=== PATIENT | male | born 1995 | race Caucasian/White ===

== ENCOUNTER 2018-04-24 12:01 | Emergency (ER) | payer OTHER ==
[2018-04-24] MEDS: NS 1,000 ML IV (15:30)
[2018-04-24 16:00] LABS: BASO % 0.2 % (0.0-1.0); HEMATOCRIT 43.9 % (42.0-52.0); HEMOGLOBIN 15.3 g/dl (13.5-17.5); IMMATURE GRANULOCYTE % 0.3 % (0-3.0); LYMPH % 8.9 % (24.0-44.0); MEAN CORPUSCULAR HEMOGLOBIN 29.8 pg (27.0-33.0); MEAN CORPUSCULAR HGB CONC 34.9 g/dl (32.0-36.5); MEAN CORPUSCULAR VOLUME 85.6 fl (80.0-96.0); MONO # 0.1 10^3/uL (0.0-0.8); NEUTROPHILS # 10.3 10^3/uL (1.8-7.7); NEUTROPHILS % 89.6 % (36.0-66.0); PLATELET COUNT, AUTOMATED 212 10^3/uL (150-450); RED BLOOD COUNT 5.13 10^6/uL (4.30-6.10); RED CELL DISTRIBUTION WIDTH 12.8 % (11.5-14.5); WHITE BLOOD COUNT 11.5 10^3/uL (4.0-10.0)
[2018-04-24 16:04] LABS: AMORPHOUS SEDIMENT RFX SMALL (NEGATIVE); KETONE, URINE AUTO RFX NEGATIVE (NEGATIVE); LEUKOCYTE ESTERASE UR AUTO RFX NEGATIVE (NEGATIVE); NITRITE, URINE AUTO RFX NEGATIVE (NEGATIVE); RBC, URINE AUTO RFX 1 /HPF (0-3); SPECIFIC GRAVITY UR AUTO RFX 1.025 (1.002-1.035); SQUAM EPITHELIAL CELL UR AURFX 0 /HPF (0-6); WBC, URINE AUTO RFX 1 /HPF (0-3)
[2018-04-24 16:38] LABS: ALBUMIN 4.7 GM/DL (3.2-5.2); ALBUMIN/GLOBULIN RATIO 1.47 (1.00-1.93); ALKALINE PHOSPHATASE 90 U/L (45-117); ALT/SGPT 18 U/L (12-78); ANION GAP 12 MEQ/L (8-16); AST/SGOT 20 U/L (7-37); BILIRUBIN,DIRECT 0.3 MG/DL (0.0-0.2); BILIRUBIN,TOTAL 1.4 MG/DL (0.2-1.0); BLOOD UREA NITROGEN 22 MG/DL (7-18); CALCIUM LEVEL 9.2 MG/DL (8.5-10.1); CARBON DIOXIDE LEVEL 24 MEQ/L (21-32); CHLORIDE LEVEL 106 MEQ/L (98-107); CREATININE FOR GFR 1.04 MG/DL (0.70-1.30); FREE T4 1.15 NG/DL (0.78-1.33); GLUCOSE, FASTING 115 MG/DL (70-100); MAGNESIUM LEVEL 2.2 MG/DL (1.8-2.4); POTASSIUM SERUM 4.1 MEQ/L (3.5-5.1); SODIUM LEVEL 142 MEQ/L (136-145); THYROID STIMULATING HORMONE 0.213 uIU/ML (0.463-3.98); TOTAL PROTEIN 7.9 GM/DL (6.4-8.2)
== END 2018-04-24 18:00 | disposition home or self-care (01) ==
LOC: M ED 12:01
DX: E86.0 Dehydration (principal); E03.9 Hypothyroidism, unspecified; R55 Syncope and collapse; J45.909 Unspecified asthma, uncomplicated; F17.220 Nicotine dependence, chewing tobacco, uncomplicated; Z79.52 Long term (current) use of systemic steroids
CPT/HCPCS: 71046

== ENCOUNTER 2018-06-13 16:55 | Emergency (ER) | payer OTHER ==
[2018-06-13 18:19] LABS: BASO # 0.1 10^3/uL (0.0-0.2); BASO % 1.1 % (0.0-1.0); EOS # 0.3 10^3/uL (0.0-0.50); EOS % 4.7 % (0.0-3.0); HEMATOCRIT 41.7 % (42.0-52.0); HEMOGLOBIN 14.4 g/dl (13.5-17.5); IMMATURE GRANULOCYTE % 0.3 % (0-3.0); LYMPH # 2.5 10^3/uL (1.5-6.5); LYMPH % 37.4 % (24.0-44.0); MEAN CORPUSCULAR HEMOGLOBIN 29.9 pg (27.0-33.0); MEAN CORPUSCULAR HGB CONC 34.5 g/dl (32.0-36.5); MEAN CORPUSCULAR VOLUME 86.7 fl (80.0-96.0); MONO # 0.5 10^3/uL (0.0-0.8); MONO % 7.5 % (0.0-5.0); NEUTROPHILS # 3.3 10^3/uL (1.8-7.7); PLATELET COUNT, AUTOMATED 224 10^3/uL (150-450); RED BLOOD COUNT 4.81 10^6/uL (4.30-6.10); RED CELL DISTRIBUTION WIDTH 12.8 % (11.5-14.5); WHITE BLOOD COUNT 6.7 10^3/uL (4.0-10.0)
[2018-06-13 18:36] LABS: PARTIAL THROMBOPLASTIN TIME 27.3 SECONDS (25.4-37.6); PROTHROMBIN TIME 13.3 SECONDS (12.1-14.4)
[2018-06-13 18:47] LABS: ANION GAP 9 MEQ/L (8-16); BLOOD UREA NITROGEN 15 MG/DL (7-18); CALCIUM LEVEL 8.7 MG/DL (8.5-10.1); CARBON DIOXIDE LEVEL 27 MEQ/L (21-32); CHLORIDE LEVEL 109 MEQ/L (98-107); CK-MB VALUE MASS 1.2 NG/ML (<3.6); CPK CREATINE PHOSPHOKINASE 334 U/L (39-308); CREATININE FOR GFR 0.96 MG/DL (0.70-1.30); GLUCOSE, FASTING 84 MG/DL (70-100); MB/CK RELATIVE INDEX 0.35 (< OR =4); POTASSIUM SERUM 3.5 MEQ/L (3.5-5.1); SODIUM LEVEL 145 MEQ/L (136-145); TROPONIN I < 0.02 NG/ML (< 0.10)
== END 2018-06-13 20:54 | disposition home or self-care (01) ==
LOC: M ED 16:55
DX: R53.1 Weakness (principal); R20.9 Unspecified disturbances of skin sensation; R00.1 Bradycardia, unspecified; J45.909 Unspecified asthma, uncomplicated
CPT/HCPCS: 70551

== ENCOUNTER → 2018-07-16 | Outpatient (CLI) | payer OTHER | LOC: M RAD 15:50 | DX: J32.4 Chronic pansinusitis (principal) | CPT/HCPCS: 70486 ==

== ENCOUNTER 2018-10-03 08:11 | Day surgery (SDC) | payer OTHER ==
[2018-10-03] MEDS ORDERED: ROCURONIUM BROMIDE 50 MG/5 ML VIAL As Ordered (08:50)
[2018-10-03] MEDS ORDERED: GLYCOPYRROLATE INJ 0.2 MG/ML 2 ML VIAL As Ordered (08:50)
[2018-10-03] MEDS ORDERED: NEOSTIGMINE 10 MG/10 ML VIAL (J2710) As Ordered (08:50)
[2018-10-03] MEDS ORDERED: LIDOCAINE 2% INJ 100 MG/5 ML SDV (FOR ANES.) As Ordered (08:50)
[2018-10-03] MEDS ORDERED: PROPOFOL 200 MG/20 ML VIAL As Ordered (08:50)
[2018-10-03] MEDS ORDERED: ONDANSETRON 4MG/2ML VIAL (J2405) As Ordered (08:50)
[2018-10-03] MEDS ORDERED: dexameTHASONE 4 MG/ML 1ML VIAL (J1100) As Ordered (08:50)
[2018-10-03] MEDS ORDERED: MIDAZOLAM INJ 2 MG/2 ML VIAL (J2250) As Ordered (08:51)
[2018-10-03] MEDS ORDERED: fentaNYL 100 MCG/2 ML INJECTION (J3010) As Ordered (08:51)
[2018-10-03] MEDS: SODIUM CHLORIDE 0.9% NASAL GEL 15GM (AYR) As Ordered (10:01)
[2018-10-03] MEDS: OXYMETAZOLINE NASAL SPRAY (AFRIN) As Ordered (10:41)
[2018-10-03] MEDS: METHYLENE BLUE 0.5% (5MG/ML) 10 ML AMP (PROVAYBLUE)(Q9968 PER 1MG) As Ordered (10:42)
[2018-10-03] MEDS: LIDOCAINE W/EPINEPHRINE 1% 20ML VIAL As Ordered (10:42)
[2018-10-03] MEDS ORDERED: diphenhydrAMINE INJ 50MG/ML VIAL (J1200) As Ordered (11:13)
[2018-10-03] MEDS: fentaNYL 100 MCG/2 ML INJECTION (J3010) IV ×4 (11:15→11:30)
[2018-10-03] MEDS: PERCOCET 5MG/325MG TAB PO ×2 (11:15→11:54)
[2018-10-03] MEDS ORDERED: METOCLOPRAMIDE INJ 10MG/2ML VIAL (J2765) IV (11:15)
[2018-10-03] MEDS ORDERED: MEPERIDINE INJ 25 MG/ML VIAL (J2175) IV (11:15)
[2018-10-03] MEDS ORDERED: LR 1,000 ML IV (11:15)
[2018-10-03] MEDS: diphenhydrAMINE INJ 50MG/ML VIAL (J1200) IV (11:15)
[2018-10-03] MEDS ORDERED: ACETAMINOPH W/CODEINE #3 TAB UD PO (11:15)
[2018-10-03] MEDS: ONDANSETRON 4MG/2ML VIAL (J2405) IV (11:15)
== END 2018-10-03 14:45 | disposition home or self-care (01) ==
LOC: M SDC 08:11
DX: J34.2 Deviated nasal septum (principal); J34.3 Hypertrophy of nasal turbinates; J45.909 Unspecified asthma, uncomplicated; Z79.899 Other long term (current) drug therapy
CPT/HCPCS: 30520

== ENCOUNTER → 2019-02-26 | Outpatient (REF) | payer OTHER ==
[~2019-02-26] MED LIST: FLON1SPR NARES; PRED1TABL PO; PROAAER10 INH
== END ==
LOC: M LAB REF 13:42
PROVIDERS: ATTEND Nurse Practitioner Family
DX: L08.9 Local infection of the skin and subcutaneous tissue, unspecified (principal)

== ENCOUNTER → 2019-07-29 | Outpatient (CLI) | payer OTHER ==
[~2019-07-29] MED LIST changes: +LIDOCAINE 1% MDV 20ML VIAL As Ordered ONE
[2019-07-29 12:23] VITALS: BP 132/60
--- NOTE | 2019-07-29 15:30 | REP ---
ULTRASOUND LEFT NECK SOFT TISSUES: Real-time sonographic of left neck soft tissues performed and compared to prior ultrasound of 06/05/2019 at [place]. Patient was scheduled for ultrasound guided biopsy of enlarged lymph nodes today. Two adjacent lymph nodes are seen in the left neck which have decreased in size when compared to the prior study. These two lymph nodes are directly adjacent to one another, one measuring 7 x 9 x 2 mm and the other 6 x 12 x 2 mm. Normal morphology is noted with both demonstrating an echogenic fatty hilum. Given the decrease in size of these lymph nodes, etiology is most compatible with reactive and inflammatory enlargement on the prior study. Therefore biopsy is not performed today. Electronically Signed by Blaze Perez MD 07/29/2019 03:46 P
== END ==
LOC: M IRPRO 12:01
PROVIDERS: ATTEND Physician Assistant Medical
DX: R59.0 Localized enlarged lymph nodes (principal); Z53.9 Procedure and treatment not carried out, unspecified reason

== ENCOUNTER 2019-11-29 12:23 | Emergency (ER) | payer OTHER ==
[~2019-11-29] VITALS: Ht 170.2 cm; Wt 72.4 kg
[~2019-11-29 12:23] MED LIST changes: -LIDOCAINE 1% MDV 20ML VIAL As Ordered ONE
[2019-11-29 12:56] LABS: BASO # 0.1 10^3/uL (0.0-0.2); EOS # 0.1 10^3/uL (0.0-0.5); EOS % 2.1 % (0.0-3.0); HEMATOCRIT 45.2 % (42.0-52.0); HEMOGLOBIN 15.1 g/dl (13.5-17.5); LYMPH # 2.1 10^3/uL (1.5-5.0); LYMPH % 41.5 % (24.0-44.0); MEAN CORPUSCULAR HGB CONC 33.4 g/dl (32.0-36.5); MEAN CORPUSCULAR VOLUME 86.9 fl (80.0-96.0); MONO # 0.4 10^3/uL (0.0-0.8); MONO % 7.9 % (0.0-5.0); NEUTROPHILS # 2.5 10^3/uL (1.5-8.5); NEUTROPHILS % 47.5 % (36.0-66.0); PLATELET COUNT, AUTOMATED 229 10^3/uL (150-450); WHITE BLOOD COUNT 5.2 10^3/uL (4.0-10.0)
[2019-11-29] MEDS ORDERED: KETOROLAC 30 MG/ML VIAL (J1885) IV ONE (13:45)
[2019-11-29 13:53] LABS: ALBUMIN 4.5 GM/DL (3.2-5.2); ALT/SGPT 21 U/L (12-78); BILIRUBIN,DIRECT 0.3 MG/DL (0.0-0.2); BILIRUBIN,TOTAL 1.5 MG/DL (0.2-1.0); LIPASE 67 U/L (73-393); TOTAL PROTEIN 7.5 GM/DL (6.4-8.2)
[2019-11-29] MEDS: GASTROGRAFIN SOLUTION 30ML PO SCH ×2 (14:02→14:39)
[2019-11-29 14:06] LABS: ERYTHROCYTE SEDIMENTATION RATE 2 mm/hr (0-15)
[2019-11-29 14:21] LABS: C REACTIVE PROTEIN QUANTITATIV < 0.30 MG/DL (0.00-0.30)
[2019-11-29] MEDS ORDERED: MORPHINE 4 MG/ML 1ML VIAL/SYRINGE (J2270) IV ONE (14:45)
[2019-11-29] MEDS ORDERED: ISOVUE-370 76% 100ML VIAL (Q9967) As Ordered ONE (15:09)
[2019-11-29 16:51] VITALS: BP 147/65
--- NOTE | 2019-11-30 07:47 | REP ---
CT ABDOMEN PELVIS WITH IV AND ORAL CONTRAST: 11/29/2019. Clinical history: Left-sided abdominal pain. Evaluate for inflammatory bowel, colitis or other. Technique: The patient received oral gastrographin 10 ml in flavored water for two doses per our bowel contrast protocol. Thereafter 100 mL Isovue 370 given and scanning through the abdomen pelvis with both coronal and sagittal reconstructions provided. Findings: CT abdomen: The lung bases were clear. There is pectus chest wall configuration of the lower portion of the sternum in a symmetric size of the lower lung ma. This indents the anterior margin of the heart but there is no cardiomegaly. The liver, spleen, gallbladder, pancreas, adrenal glands and kidneys were unremarkable. Abdominal aorta and lower thoracic aorta without aneurysm or dissection. No periaortic other retroperitoneal pathologic sized lymphadenopathy. Small bowel loops contrast filled without dilatation, wall thickening or adjacent edema. No mesenteric fluid. The lung windows show no perforation or free air through the entire abdomen and pelvis. There is no ascites. Stool and gas are seen in the right colon, hepatic flexure and transverse colon, however there is collapse of the distal flexure and left colon. No sign of diverticulosis or diverticulitis. No significant stranding of the pericolonic fat but some wall thickening suggested. There is no ventral hernia. Bone windows show no abnormality in the lumbar, lower thoracic region for the visualized ribs. CT pelvis: Sacrum, SI joints, pelvis and hips were unremarkable. Distal small bowel loops are without dilatation or inflammatory change. Contrast reaches the mid to distal ileum but not the terminal ileum or cecum. There are a few pericecal nodes but these are not large. I do not see inflammatory changes about the cecum. The distal left colon, sigmoid and rectum are collapsed. Questionable wall thickening but no inflammatory changes in the fat and no adjacent ascites. No pelvic lymphadenopathy. No ventral or inguinal hernia. Impression: 1. Left colon from the distal splenic flexure to above the sigmoid shows collapse and wall thickening suggesting some focal colitis. I do not see small bowel loop changes, dilated loops, air-fluid levels, mass or free air. No ascites or abscess. 2. Solid organs upper abdomen were unremarkable. 3. Kidneys without stone, hydronephrosis, ureteral dilatation or ureteral/bladder stone. 4. Pectus configuration lower chest wall. No other significant or acute finding. Electronically Signed by Kingston Anderson MD 11/30/2019 09:30 A
== END 2019-11-29 16:57 | disposition home or self-care (01) ==
LOC: M ED 12:23
DX: R10.12 Left upper quadrant pain (principal); R10.32 Left lower quadrant pain; R19.7 Diarrhea, unspecified; K63.89 Other specified diseases of intestine; Z87.39 Personal history of other diseases of the musculoskeletal system and connective tissue
CPT/HCPCS: 74177; 80047; 80076; 81001; 83690; 85025; 85652; 86140; 96374; 96375; 99284; J1885; J2270; Q9963; Q9967

== ENCOUNTER 2020-05-12 23:41 | Emergency (ER) | payer OTHER ==
[~2020-05-12] VITALS: Ht 170.2 cm; Wt 75.5 kg
[2020-05-13] MEDS ORDERED: ONDANSETRON 4MG/2ML VIAL IV ONE (00:45)
[2020-05-13 01:06] LABS: BASO # 0.1 10^3/uL (0.0-0.2); BASO % 1.1 % (0.0-1.0); EOS # 0.5 10^3/uL (0.0-0.5); EOS % 7.2 % (0.0-3.0); HEMATOCRIT 40.9 % (42.0-52.0); LYMPH # 2.7 10^3/uL (1.5-5.0); LYMPH % 41.3 % (24.0-44.0); MEAN CORPUSCULAR HEMOGLOBIN 29.6 pg (27.0-33.0); MEAN CORPUSCULAR HGB CONC 34.2 g/dl (32.0-36.5); MEAN CORPUSCULAR VOLUME 86.5 fl (80.0-96.0); MONO # 0.6 10^3/uL (0.0-0.8); MONO % 8.4 % (0.0-5.0); NEUTROPHILS # 2.7 10^3/uL (1.5-8.5); PLATELET COUNT, AUTOMATED 231 10^3/uL (150-450); RED BLOOD COUNT 4.73 10^6/uL (4.30-6.10); WHITE BLOOD COUNT 6.5 10^3/uL (4.0-10.0)
[2020-05-13 01:28] LABS: ERYTHROCYTE SEDIMENTATION RATE 4 mm/hr (0-15)
[2020-05-13 02:21] VITALS: BP 128/78
[2020-05-13] MEDS ORDERED: ASPI81TA85 PO (21:03)
== END 2020-05-13 02:22 | disposition home or self-care (01) ==
LOC: M ED 23:41
DX: L98.9 Disorder of the skin and subcutaneous tissue, unspecified (principal); J45.909 Unspecified asthma, uncomplicated; Z72.0 Tobacco use; Z79.82 Long term (current) use of aspirin
CPT/HCPCS: 36415; 71275; 73630; 74174; 80047; 80048; 80076; 82550; 82553; 84484; 85025; 85379; 85610; 85652; 85730; 86140; 87040; 93005; 93306; 93926; 99284; Q9967

== ENCOUNTER 2020-05-13 13:43 | Emergency (ER) | payer OTHER ==
[~2020-05-13] VITALS: Ht 170.2 cm; Wt 75.9 kg
[2020-05-13 16:18] LABS: ERYTHROCYTE SEDIMENTATION RATE 3 mm/hr (0-15)
[2020-05-13 16:29] LABS: ALBUMIN 4.2 GM/DL (3.2-5.2); ALT/SGPT 19 U/L (12-78); BILIRUBIN,DIRECT 0.3 MG/DL (0.0-0.2); BILIRUBIN,TOTAL 1.8 MG/DL (0.2-1.0); CK-MB VALUE MASS < 1.0 NG/ML (<3.6); CPK CREATINE PHOSPHOKINASE 292 U/L (39-308); D-DIMER QUANT < 270 ng/ml (<500); MB/CK RELATIVE INDEX 0.34 (< OR =4); TOTAL PROTEIN 7.3 GM/DL (6.4-8.2); TROPONIN I < 0.02 NG/ML (< 0.10)
[2020-05-13 17:02] LABS: BLOOD UREA NITROGEN 14 MG/DL (7-18); CALCIUM LEVEL 8.7 MG/DL (8.5-10.1); CARBON DIOXIDE LEVEL 24 MEQ/L (21-32); CHLORIDE LEVEL 109 MEQ/L (98-107); GLOMERULAR FILTRATION RATE > 60.0 (>60); GLUCOSE, FASTING 119 MG/DL (70-100); POTASSIUM SERUM 3.7 MEQ/L (3.5-5.1); SODIUM LEVEL 140 MEQ/L (136-145)
--- NOTE | 2020-05-13 17:28 | REPVR ---
PROCEDURE INFORMATION: Exam: US Duplex left Lower Extremity Arteries Or Arterial Bypass Grafts Exam date and time: 05/13/2020 5:10 PM Age: 24 years old Clinical indication: Other: Black left great toe; Additional info: Toes turing black ? clots left TECHNIQUE: Imaging protocol: Left Real-time duplex scan of the arteries or arterial bypass grafts of the right lower extremity with 2-D stovall scale, color Doppler flow and spectral waveform analysis. Images documented and saved. COMPARISON: No relevant prior studies available. FINDINGS: Left common femoral artery: No occlusion or significant stenosis. Normal waveform. Left superficial femoral artery: No occlusion or significant stenosis. Normal waveform. Left popliteal artery: No occlusion or significant stenosis. Normal waveform. Left infrapopliteal arteries: No occlusion or stenosis. Normal waveform. Soft tissues: Unremarkable. Other findings: Ankle brachial index 1.1. IMPRESSION: Unremarkable US. No significant thrombus, stenosis or occlusion demonstrated. Normal ankle brachial index. Electronically signed by: Star Roberts On 05/13/2020 17:28:23 PM
[2020-05-13 17:58] VITALS: BP 149/65
[2020-05-13 19:12] LABS: BASO # 0.1 10^3/uL (0.0-0.2); BASO % 1.3 % (0.0-1.0); EOS # 0.3 10^3/uL (0.0-0.5); EOS % 5.6 % (0.0-3.0); HEMATOCRIT 43.7 % (42.0-52.0); HEMOGLOBIN 15.2 g/dl (13.5-17.5); LYMPH # 1.9 10^3/uL (1.5-5.0); LYMPH % 34.1 % (24.0-44.0); MEAN CORPUSCULAR HEMOGLOBIN 30.1 pg (27.0-33.0); MEAN CORPUSCULAR HGB CONC 34.8 g/dl (32.0-36.5); MEAN CORPUSCULAR VOLUME 86.5 fl (80.0-96.0); MONO # 0.5 10^3/uL (0.0-0.8); MONO % 9.5 % (0.0-5.0); NEUTROPHILS # 2.7 10^3/uL (1.5-8.5); NEUTROPHILS % 49.5 % (36.0-66.0); PLATELET COUNT, AUTOMATED 224 10^3/uL (150-450); RED BLOOD COUNT 5.05 10^6/uL (4.30-6.10); WHITE BLOOD COUNT 5.5 10^3/uL (4.0-10.0)
[2020-05-13 19:23] LABS: INR 1.06; PROTHROMBIN TIME 13.5 SECONDS (11.8-14.0)
[2020-05-13 19:24] LABS: PARTIAL THROMBOPLASTIN TIME 27.5 SECONDS (25.0-38.4)
[2020-05-13] MEDS ORDERED: ISOVUE-370 76% 100ML VIAL As Ordered ONE (19:37)
--- NOTE | 2020-05-13 20:23 | REPVR ---
PROCEDURE INFORMATION: Exam: CT Angiography Chest With Contrast Exam date and time: 05/13/2020 7:42 PM Age: 24 years old Clinical indication: Other: Black toes; Additional info: Black toes ? emboli TECHNIQUE: Imaging protocol: Computed tomographic angiography of the chest with intravenous contrast. 3D rendering: MIP and/or 3D reconstructed images were created by the technologist. Radiation optimization: All CT scans at this facility use at least one of these dose optimization techniques: automated exposure control; mA and/or kV adjustment per patient size (includes targeted exams where dose is matched to clinical indication); or iterative reconstruction. Contrast material: ISOVUE 370; Contrast volume: 100 ml; Contrast route: INTRAVENOUS (IV); COMPARISON: CR PORTABLE CHEST X-RAY 06/13/2018 6:16 PM FINDINGS: Pulmonary arteries: There are no pulmonary emboli. Aorta: Thoracic aorta unremarkable without evidence of noncalcific of calcific plaque. No aneurysm or dissection. Lungs: Mild bibasilar atelectasis. Lungs otherwise clear. Pleural space: Unremarkable. No pneumothorax. No pleural effusion. Heart: Unremarkable. No cardiomegaly. No pericardial effusion. Lymph nodes: Unremarkable. No enlarged lymph nodes. Bones/joints: Pectus excavatum deformity. Dextroscoliosis. Soft tissues: Unremarkable. IMPRESSION: 1. Thoracic aorta unremarkable without evidence of noncalcific of calcific plaque. No aneurysm or dissection. 2. There are no pulmonary emboli. 3. No acute pulmonary parenchymal abnormalities. Electronically signed by: Star Roberts On 05/13/2020 20:23:31 PM
--- NOTE | 2020-05-13 20:31 | REPVR ---
PROCEDURE INFORMATION: Exam: CTA Angiogram of the Abdominal Aorta and Bilateral Lower Extremities (Run-off) With IV Contrast Exam date and time: 05/13/2020 7:42 PM Age: 24 years old Clinical indication: Other: Black toes; Additional info: Black toes ? emboli. With runoff TECHNIQUE: Imaging protocol: CT angiogram of the abdominal aorta, pelvis and bilateral lower extremities with IV iodinated contrast. COMPARISON: CT ABD/PEL W/IV ORAL CONTRAS 11/29/2019 3:07 PM FINDINGS: Aorta: No aortic aneurysm. No aortic dissection. Celiac trunk and mesenteric arteries: No occlusion or significant stenosis. Renal arteries: No occlusion or significant stenosis. Right iliac arteries: No occlusion or significant stenosis. Right femoral/popliteal arteries: No occlusion or significant stenosis. Right infrapopliteal arteries: No occlusion or significant stenosis. Left iliac arteries: No occlusion or significant stenosis. Left femoral/popliteal arteries: No occlusion or significant stenosis. Left infrapopliteal arteries: No occlusion or significant stenosis. IMPRESSION: Unremarkable CTA abdomen, pelvis and lower extremities. PROCEDURE INFORMATION: Exam: CT Abdomen and Pelvis With Contrast Exam date and time: 05/13/2020 7:42 PM Age: 24 years old Clinical indication: Other: Black toes; Additional info: Black toes ? emboli. With runoff TECHNIQUE: Imaging protocol: Computed tomographic of the abdomen and pelvis with intravenous contrast material. 3D rendering: MIP and/or 3D reconstructed images were created by the technologist. Radiation optimization: All CT scans at this facility use at least one of these dose optimization techniques: automated exposure control; mA and/or kV adjustment per patient size (includes targeted exams where dose is matched to clinical indication); or iterative reconstruction. Contrast material: ISOVUE 370; Contrast volume: 100 ml; Contrast route: INTRAVENOUS (IV); COMPARISON: CT ABD/PEL W/IV ORAL CONTRAS 11/29/2019 3:07 PM FINDINGS: Liver: No mass. Gallbladder and bile ducts: Unremarkable. No calcified stones. No ductal dilation. Pancreas: Unremarkable. No mass. No ductal dilation. Spleen: Unremarkable. No splenomegaly. Adrenals: Unremarkable. No mass. Kidneys and ureters: Unremarkable. No solid mass. No hydronephrosis. Stomach and bowel: Unremarkable. No obstruction. No mucosal thickening. Appendix: No evidence of appendicitis. Intraperitoneal space: Unremarkable. No free air. No significant fluid collection. Lymph nodes: Unremarkable. No enlarged lymph nodes. Bladder: Unremarkable. No mass. Reproductive: Unremarkable as visualized. Bones/joints: No acute fracture. No dislocation. Soft tissues: Unremarkable. IMPRESSION: Unremarkable exam. Electronically signed by: Star Roberts On 05/13/2020 20:31:04 PM
[2020-05-13] MEDS ORDERED: ASPI81TA85 PO (21:03)
--- NOTE | 2020-05-13 21:40 | ECGEPIP ---
[facility] - ED Test Date: 2020-05-13 Pat Name: FABIO ZHENG Department: Room: - Gender: Male Greens Keeper: SOLOMON : 1995 Requested By: RAYMOND JOSEPH PA-C Order Number: [id number] Reading MD: Latosha Dalton Measurements Intervals [place] Rate: 71 P: 50 NC: 147 QRS: 43 QRSD: 94 T: 30 QT: 369 QTc: 402 Interpretive Statements SINUS RHYTHM WITH MARKED SINUS ARRHYTHMIA POSSIBLE RIGHT VENTRICULAR CONDUCTION DELAY Electronically Signed on 05-13-2020 21:39:50 EDT by Latosha Dalton
--- NOTE | 2020-05-14 10:34 | REP ---
FOOT: REASON FOR EXAM: Pain after trauma. FINDINGS: The joint spaces are symmetric and relatively well maintained. There is no evidence of acute fracture or destructive osseous lesion. IMPRESSION: Negative. Electronically Signed by Tanner Tafoya DO 05/15/2020 08:31 A
--- NOTE | 2020-05-14 14:32 | ECHO ---
DATE OF PROCEDURE: 05/13/2020 DATE OF : 1995 AGE: 24 GENDER: Male. HEIGHT: 67 inches WEIGHT: 167 pounds BODY SURFACE AREA: 1.87 m2 INPATIENT: In the emergency room at the time of this study. 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 MEASUREMENTS: 2-D Measurements: RV: 3.2 cm LV: 4.8 cm Septum: 1.0 cm Posterior wall: 1.0 cm Aortic root: 2.8 cm LA: 2.6 cm LVEF: 75% Doppler Measurements: AV: 1.1 m/sec LVOT: 0.93 m/sec LVOT diameter: 2.0 cm MV - E: 81, A: 51, EA ratio: 1.6 Early mitral deceleration time: 151 ms E prime: 11, A prime: 5, E prime lateral: 8 Average E/E prime ratio: 8.5/PCWP 12 mmHg PV: 0.85 m/sec Pulmonary artery acceleration time: 120 ms RVSP: 27 mmHg IVC: 1.7 cm COMMENTS: Sinus bradycardia/sinus arrhythmia without intraventricular conduction disturbance. Excellent image quality. M-mode and two-dimensional echocardiography was performed with pulsed, continuous wave, color flow and tissue Doppler studies. Normal left ventricular size, wall thickness and hyperkinetic wall motion. Normal left atrial size and Doppler assessment of LV diastolic function and estimated mean left atrial pressure. Normal right heart chamber sizes and motion and estimated pulmonary arterial pressure. Normal IVC size and collapse against an elevated central venous pressure. Normal aortic dimensions. Normal-appearing valvular structures and function. No sign of intracardiac mass. Valvular leaflets were well visualized without evidence of vegetation. There was also no sign of a patent foramen ovale. No pericardial effusion.
== END 2020-05-13 21:21 | disposition home or self-care (01) ==
LOC: M ED 13:43
DX: M25.572 Pain in left ankle and joints of left foot (principal); L98.9 Disorder of the skin and subcutaneous tissue, unspecified; R00.1 Bradycardia, unspecified; J45.909 Unspecified asthma, uncomplicated; Z72.0 Tobacco use; Z79.82 Long term (current) use of aspirin

== ENCOUNTER 2020-10-05 12:16 | Emergency (ER) | payer OTHER ==
[~2020-10-05] VITALS: Ht 170.2 cm; Wt 76.8 kg
[~2020-10-05 12:16] MED LIST changes: +ASPI81TA86 PO
[2020-10-05 12:17] VITALS: BP 142/82
[2020-10-05] MEDS ORDERED: PSEU120T19 PO (13:05)
[2020-10-05] MEDS ORDERED: FLON1SPR NARES (13:05)
== END 2020-10-05 13:24 | disposition home or self-care (01) ==
LOC: M ED 12:16
DX: J02.9 Acute pharyngitis, unspecified (principal); B34.8 Other viral infections of unspecified site; R51.9 Headache, unspecified; R09.81 Nasal congestion; Z20.828 Contact with and (suspected) exposure to other viral communicable diseases
CPT/HCPCS: 87880; 99284; U0003

== ENCOUNTER 2021-02-09 11:53 | Emergency (ER) | payer OTHER ==
[~2021-02-09] VITALS: Ht 167.6 cm; Wt 77.3 kg
[2021-02-09 11:53] VITALS: BP 147/72
[~2021-02-09 11:53] MED LIST changes: +PSEU120T19 PO
[2021-02-09] MEDS ORDERED: KETOROLAC 60MG 2ML VIAL IM ONE (12:20)
[2021-02-09] MEDS ORDERED: PRED20TA PO (12:57)
== END 2021-02-09 13:06 | disposition home or self-care (01) ==
LOC: M ED 11:53
DX: G89.29 Other chronic pain (principal); M54.6 Pain in thoracic spine; J45.909 Unspecified asthma, uncomplicated
CPT/HCPCS: 96372; 99282; J1885

== ENCOUNTER → 2021-03-14 | Outpatient (CLI) | payer OTHER ==
[~2021-03-14] MED LIST changes: +PRED20TA PO
--- NOTE | 2021-03-14 18:24 | REPVR ---
PROCEDURE INFORMATION: Exam: MR Lumbar Spine Without Contrast Exam date and time: 03/14/2021 9:24 AM Age: 25 years old Clinical indication: Condition or disease; Disc degeneration; Thoracolumbar region; Additional info: Thoracic radiculopathy ddd lumbar ? hnp stenosis TECHNIQUE: Imaging protocol: Multiplanar magnetic resonance images of the lumbar spine without intravenous contrast. COMPARISON: No relevant prior studies available. FINDINGS: Vertebrae: The lumbar vertebral bodies are normal in height, without abnormal subluxation. Spinal cord: The distal end of the conus medullaris ends at T12-L1, normal in position. Multilevel findings: Degenerative changes are identified involving the lumbar spine. There is a degenerative decrease in the T2 signal intensity of the L5-S1 disc. L1-L2: There is no significant narrowing of the thecal sac or neural foramina. L2-L3: Minimal disc bulging, without significant spinal canal stenosis or neural foraminal narrowing. L3-L4: Minimal disc bulging, without significant spinal canal stenosis or neural foraminal narrowing. L4-L5: Mild disc bulging. There is no significant narrowing of the thecal sac. A tiny osseous cyst is identified adjacent to the right facet joint, likely secondary to arthropathy. Mild left neural foraminal narrowing. No significant narrowing of the right neural foramen. L5-S1: There is a central disc protrusion causing a minimal impression on the ventral thecal sac, without thecal sac compression. An annular tear is identified at the posterior aspect of the disc. Mild left neural foraminal narrowing. No significant narrowing of the right neural foramen. Soft tissues: No significant paraspinal swelling. IMPRESSION: 1. Degenerative changes are identified involving the lumbar spine, as described above. 2. At L5-S1, there is a central disc protrusion causing a minimal impression on the ventral thecal sac, without thecal sac compression. 3. Mild left neural foraminal narrowing at L4-L5 and L5-S1. Electronically signed by: Eugenio Ingram On 03/14/2021 18:24:37 PM
--- NOTE | 2021-03-14 18:45 | REPVR ---
PROCEDURE INFORMATION: Exam: MR Thoracic Spine Without Contrast Exam date and time: 03/14/2021 9:24 AM Age: 25 years old Clinical indication: Condition or disease; Disc degneration; Thoracolumbar; Without myelopathy or radiculopathy; Additional info: Thoracic radiculopathy ddd lumbar ? hnp stenosis TECHNIQUE: Imaging protocol: Multiplanar magnetic resonance images of the thoracic spine without contrast. COMPARISON: MRI-Spine, L.S. without con 03/14/2021 8:47:21 AM FINDINGS: Vertebrae: The thoracic vertebral bodies are normal in height, without abnormal subluxation. There is mild dextroscoliosis of the thoracic spine. Spinal cord: There is an overall mild decrease in the AP diameter of the mid to upper thoracic spinal cord, which is likely developmental or due to cord atrophy. Narrowing of the thoracic spinal cord is also visualized at T10-11, without evidence of direct compression. Evaluation of the neural foramina within the lower thoracic spinal cord is limited. No significant neural foraminal narrowing at the remaining thoracic levels. Within the mid to lower thoracic spinal cord, there is a central band of T2 hyperintensity measuring 2 mm in diameter. This is consistent with prominence of the central canal or small syrinx. This extends from T7 and T8. See below. Discs/Spinal canal/Neural foramina: Evaluation of the T12 level and T12-L1 disc are significant limited by artifact. There is no significant spinal canal stenosis or neural foraminal narrowing at this level on MRI lumbar spine images from the same day. Degenerative changes are identified at multiple thoracic levels, with disc bulge/osteophyte complexes. At T2-3, there is a small right paracentral disc protrusion causing mild flattening/compression of the thoracic spinal cord. Mild disc bulging at T3-4, with mild flattening of the ventral thoracic spinal cord. Mild disc bulging at T4-5, without significant spinal canal stenosis. At T5-6, there is a small right paracentral disc protrusion which contacts the adjacent thoracic spinal cord. At T6-7, there is a central disc protrusion with mild flattening of the ventral thoracic spinal cord. Minimal disc bulging at T8-9, with slight flattening of the left ventral thoracic spinal cord. No significant spinal canal stenosis at the remaining thoracic levels. Soft tissues: No significant paraspinal swelling. Lungs: Evaluation of the lungs on this study is limited. IMPRESSION: 1. Degenerative changes are identified at multiple thoracic levels, as described above. 2. At T2-3, there is a small right paracentral disc protrusion causing mild flattening/compression of the thoracic spinal cord. Mild disc bulging at T3-4, with mild flattening of the ventral thoracic spinal cord. 3. At T5-6, there is a small right paracentral disc protrusion which contacts the adjacent thoracic spinal cord. At T6-7, there is a central disc protrusion with mild flattening of the ventral thoracic spinal cord. 4. Minimal disc bulging at T8-9, with slight flattening of the left ventral thoracic spinal cord. 5. Within the mid to lower thoracic spinal cord, there is a central band of T2 hyperintensity measuring 2 mm in diameter. This is consistent with prominence of the central canal or small syrinx. This extends from T7 and T8. Follow-up postcontrast images recommended. 6. There is an overall mild decrease in the AP diameter of the mid to upper thoracic spinal cord, which is likely developmental or due to cord atrophy. Narrowing of the thoracic spinal cord is also visualized at T10-11, without evidence of direct compression. 7. There is mild dextroscoliosis of the thoracic spine. 8. Additional findings described above. Electronically signed by: Eugenio Ingram On 03/14/2021 18:45:26 PM
== END ==
LOC: M PLARAD 07:46
PROVIDERS: ATTEND Orthopaedic Surgery
DX: M54.14 Radiculopathy, thoracic region (principal); M51.36 Other intervertebral disc degeneration, lumbar region; M51.27 Other intervertebral disc displacement, lumbosacral region; M51.24 Other intervertebral disc displacement, thoracic region

== ENCOUNTER → 2021-04-19 | Outpatient (CLI) | payer OTHER ==
--- NOTE | 2021-04-20 17:57 | REPVR ---
PROCEDURE INFORMATION: Exam: MR Thoracic Spine Without and With Contrast Exam date and time: 04/19/2021 4:18 PM Age: 25 years old Clinical indication: Condition or disease; Other: Syringomyelia and syringobulbia TECHNIQUE: Imaging protocol: Multiplanar magnetic resonance images of the thoracic spine without and with contrast. Contrast material: PROHANCE; Contrast volume: 15 ml; Contrast route: INTRAVENOUS (IV); COMPARISON: MRI-Spine,Thoracic without con 03/14/2021 8:09 AM FINDINGS: Limitations: The study is moderately limited due to patient motion artifact. Additionally, the sagittal sequences do not completely cover the spine due to underlying scoliosis and a narrow field of view. Vertebrae: Unremarkable. Spinal cord: There appears to be minimal dilation of the central canal within the cord at the T7 to T9 levels. No enhancing lesions were identified after the administration of contrast. Discs/Spinal canal/Neural foramina: Mild degenerative changes of the thoracic spine are present. Small posterior disc protrusions are noted T3-4, T4-5, T5-6, T6-7, T8-9, and T10-11. There is no severe spinal canal stenosis or cord compression. Soft tissues: Unremarkable. IMPRESSION: 1. Moderately limited exam due to motion artifact, scoliosis, and technique. 2. Probable stable minor dilation of the central canal within the cord at T7-T9 Electronically signed by: Trevor Poon On 04/20/2021 17:57:03 PM
== END ==
LOC: M PLARAD 13:47
PROVIDERS: ATTEND Physical Medicine & Rehabilitation
DX: G95.0 Syringomyelia and syringobulbia (principal)

== ENCOUNTER 2021-10-10 09:56 | Emergency (ER) | payer OTHER ==
[2021-10-10 09:56] VITALS: BP 132/63
--- OUTSIDE RECORDS SUMMARY | 2021-10-10 10:01 | CCD ---
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 Name Role Phone Henry, Bry Unavailable Unavailable Henry, Bry Unavailable Unavailable Henry, Bry Unavailable Unavailable Henry, Bry Unavailable Unavailable Henry, Bry Unavailable Unavailable Henry, Bry Unavailable Unavailable Henry, Bry Unavailable Unavailable Henry, Bry Unavailable Unavailable Henry, Bry Unavailable Unavailable Henry, Bry Unavailable Unavailable Henry, Bry Unavailable Unavailable Henry, Bry Unavailable Unavailable Henry, Bry Unavailable Unavailable Henry, Bry Unavailable Unavailable Henry, Bry Unavailable Unavailable Henry, Bry Unavailable Unavailable Henry, Bry Unavailable Unavailable Henry, Bry Unavailable Unavailable Henry, Bry Unavailable Unavailable Henry, Bry Unavailable Unavailable Henry, Bry Unavailable Unavailable Henry, Bry Unavailable Unavailable Henry, Bry Unavailable Unavailable Henry, Bry Unavailable Unavailable Henry, Bry Unavailable Unavailable Henry, Bry Unavailable Unavailable Henry, Bry Unavailable Unavailable Henry, Bry Unavailable Unavailable Henry, Bry Unavailable Unavailable Henry, Bry Unavailable Unavailable Henry, Bry Unavailable Unavailable Henry, Bry Unavailable Unavailable Henry, Bry Unavailable Unavailable Henry, Bry Unavailable Unavailable Henry, Bry Unavailable Unavailable Henry, Bry Unavailable Unavailable Henry, Bry Unavailable Unavailable Henry, Bry Unavailable Unavailable Henry, Bry Unavailable Unavailable Henry, Bry Unavailable Unavailable Henry, Bry Unavailable Unavailable Henry, Bry Unavailable Unavailable Henry, Bry Unavailable Unavailable Henry, Bry Unavailable Unavailable Henry, Bry Unavailable Unavailable UNKNOWN, [facility] Unavailable Unavailable Andrez, Rico Zhao MD Unavailable Unavailable Andrez, Rico Zhao MD Unavailable Unavailable Andrez, Rico Zhao MD Unavailable Unavailable Andrez, Rico Zhao MD Unavailable Unavailable Andrez, Rico Zhao MD Unavailable Unavailable Andrez, Rico Zhao MD Unavailable Unavailable Andrez, Rico Zhao MD Unavailable Unavailable Andrez, Rico Zhao MD Unavailable Unavailable Andrez, Rico Zhao MD Unavailable Unavailable Andrez, Rico Zhao MD Unavailable Unavailable Andrez, Rico Zhao MD Unavailable Unavailable Andrez, Rico Zhao MD Unavailable Unavailable Andrez, Rico Zhao MD Unavailable Unavailable Andrez, Rico Zhoa MD Unavailable Unavailable Andrez, Rico Zhao MD Unavailable Unavailable TURRIN, DEONTE Unavailable Unavailable TURRIN, DEONTE Unavailable Unavailable TURRIN, DEONTE Unavailable Unavailable TURRIN, DEONTE Unavailable Unavailable Pacheco, Xander Davis MD Unavailable Unavailable Pacheco, Xander Davis MD Unavailable Unavailable Pacheco, Xander Davis MD Unavailable Unavailable Pacheco, Xander Davis MD Unavailable Unavailable Pacheco, Xander Davis MD Unavailable Unavailable Pacheco, Xander Davis MD Unavailable Unavailable Pacheco, Xander Davis MD Unavailable Unavailable Pacheco, Xander Davis MD Unavailable Unavailable Pacheco, Xander Davis MD Unavailable Unavailable Pacheco, Xander Davis MD Unavailable Unavailable Pacheco, Xander Davis MD Unavailable Unavailable Pacheco, Xander Davis MD Unavailable Unavailable Pacheco, Xander Davis MD Unavailable Unavailable Pacheco, Xander Davis MD Unavailable Unavailable Pacheco, Xander Davis MD Unavailable Unavailable Pacheco, Xander Davis MD Unavailable Unavailable Pacheco, Xander Davis MD Unavailable Unavailable Pacheco, Xander Davis MD Unavailable Unavailable Pacheco, Xander Davis MD Unavailable Unavailable Pacheco, Xander Davis MD Unavailable Unavailable Pacheco, Xander Davis MD Unavailable Unavailable Pacheco, Xander Davis MD Unavailable Unavailable Pacheco, Xander Davis MD Unavailable Unavailable Pacheco, Xander Davis MD Unavailable Unavailable Pacheco, Xander Davis MD Unavailable Unavailable Pacheco, Xander Davis MD Unavailable Unavailable Pacheco, Xander Davis MD Unavailable Unavailable Pacheco, Xander Davis MD Unavailable Unavailable Pacheco, Xander Davis MD Unavailable Unavailable Pacheco, Xander Davis MD Unavailable Unavailable Pacheco, Xander Davis MD Unavailable Unavailable Pacheco, Xander Davis MD Unavailable Unavailable Pacheco, Xander Davis MD Unavailable Unavailable Pacheco, Xander Davis MD Unavailable Unavailable Pacheco, Xander Davis MD Unavailable Unavailable Pacheco, Xander Davis MD Unavailable Unavailable Pacheco, Xander Davis MD Unavailable Unavailable Pacheco, Xander Davis MD Unavailable Unavailable Pacheco, Xander Davis MD Unavailable Unavailable Pacheco, Xander Davis MD Unavailable Unavailable Pacheco, Xander Davis MD Unavailable Unavailable Pacheco, Xander Davis MD Unavailable Unavailable Pacheco, Xander Davis MD Unavailable Unavailable Pacheco, Xander Davis MD Unavailable Unavailable Pacheco, Xander Davis MD Unavailable Unavailable Pacheco, Xander Davis MD Unavailable Unavailable Pacheco, Xander Davis MD Unavailable Unavailable Pacheco, Xander Davis MD Unavailable Unavailable Pacheco, Xander Davis MD Unavailable Unavailable Pachceo, Xander Davis MD Unavailable Unavailable Pacheco, Xander Davis MD Unavailable Unavailable Re-disclosure Warning The records that you are about to access may contain information from federally-assisted alcohol or drug abuse programs. If such information is present, then the following federally mandated warning applies: This information has been disclosed to you from records protected by federal confidentiality rules (42 CFR part 2). The federal rules prohibit you from making any further disclosure of this information unless further disclosure is expressly permitted by the written consent of the person to whom it pertains or as otherwise permitted by 42 CFR part 2. A general authorization for the release of medical or other information is NOT sufficient for this purpose. The Federal rules restrict any use of the information to criminally investigate or prosecute any alcohol or drug abuse patient.The records that you are about to access may contain highly sensitive health information, the redisclosure of which is protected by Article 27-F of the [facility] Public Health law. If you continue you may have access to information: Regarding HIV / AIDS; Provided by facilities licensed or operated by the [facility] Office of Mental Health; or Provided by the [facility] Office for People With Developmental Disabilities. If such information is present, then the following [facility] mandated warning applies: This information has been disclosed to you from confidential records which are protected by state law. State law prohibits you from making any further disclosure of this information without the specific written consent of the person to whom it pertains, or as otherwise permitted by law. Any unauthorized further disclosure in violation of state law may result in a fine or skilled nursing sentence or both. A general authorization for the release of medical or other information is NOT sufficient authorization for further disc losure. Allergies and Adverse Reactions Type Description Substance Reaction Status Data Source(s ) Propensity to adverse reactions NO KNOWN ALLERGIES NO KNOWN ALLERGIES [facility] Family History Family Member Name Family Member Gender Family Member Status Date o f Status Description Data Source(s) Unknown Unknown Problem [facility] ) Unknown Unknown Problem [facility] ([facility], ) Encounters Encounter Providers Location Date Indications Data Source(s ) Outpatient Referrer: Pavel Maguire MD [id number] 2020 10:32:25 AM EST - 09/12/2021 11:59:00 PM EST [facility] Patient discharged. Emergency Attender: DEONTE MOYConsultant: ISRAEL MOONEY 08/09/2021 10:30:00 AM EDT - 08/09/2021 02:11:00 PM EDT [facility] Patient discharged. Outpatient Attender: Bry Henry Physical Therapy 05/17/2021 11:00:0 0 AM EDT [facility] ([facility]) Outpatient Attender: Bry Henry Physical Therapy 03/29/2021 11:00:0 0 AM EDT [facility] ([facility]) Outpatient Attender: Ryan Pacheco MD Physical Therapy 03/21/2021 0 8:15:00 AM EDT [facility] ([facility]) Outpatient Attender: Ryan Pacheco MD Physical Therapy 02/22/2021 0 3:15:00 PM EDT [facility] ([facility]) Immunizations Vaccine Date Status Description Data Source(s) COVID-19 VACCINE Pfizer 02/01/2021 12:00:00 AM EDT completed NYSIIS Vaccine Series Complete: NOThis Data was Submitted to [facility] Via [employer]. Medications Medication Brand Name Start Date Product Form Dose Route Admi nistrative Instructions Pharmacy Instructions Status Indications Reaction Description Data Source(s) 20 mg 02/09/2021 12:00:00 AM EDT tablet 15 TAKE 3 TABLETS BY MOUTH DAILY TAKE 3 TABLETS BY MOUTH DAILY SOLD: 02/09/2021 [facility] 50 mcg/actuation 10/05/2020 12:00:00 AM EST spray,suspension 16 SPRAY 2 SPRAYS IN NOSTRILS ONCE DAILY DIRECTED SPRAY 2 SPRAYS IN NOSTRILS ONCE DAILY DIRECTED SOLD: 10/05/2020 [facility] Insurance Providers Payer name Policy type / Coverage type Policy ID Covered green party ID Covered green party's relationship to castillo Policy Castillo Plan Information [facility] ACTIVE DUTY [id number] SP [id number] [facility] ACTIVE DUTY [id number] SP [id number] [facility] (2018) Health Maintenance Organization [place] [id number] Self [id number] [facility] (2018) [employer] Maintenance Organization (O) [id number] Self [id number] [facility] (2018) Health Maintenance Organization (HMO) [id number] Self [id number] U [id number] Self [id number] U [id number] Self [id number] COMMERCIAL GENERIC [id number] Raegan [id number] [facility] ACTIVE DUTY [id number] SP [id number] [facility] (2018) [facility] Maintenance [facility] ([facility] [id number] Self [id number] [facility] [employer] - PHYSICIAN [id number] 18 [id number] [facility] (2018) [facility] Maintenance [facility] (O) [id number] Self [id number] COMMER[employer] GENERIC [id number] [facility] [employer] - O/P [id number] 18 [id number] [employer] [facility] REG O [id number] S [id number] Problems, Conditions, and Diagnoses Code Display Name Description Problem Type Effective Dates Data Source(s) R07.9 Chest pain, unspecified Chest pain, unspecified Diagno sis 09/12/2021 10:32:25 AM EST [facility] R55 Syncope and collapse Syncope and collapse Diagnosis 08/09/2021 10:30:00 AM EDT [facility] Surgeries/Procedures Procedure Description Date Indications Data Source(s) ECHO TTHRC R-T 2D W/WOM-MODE COMPL SPEC&COLR DOP <td>E CHOCARDIOGRAM TRANSTHORACIC</td><td>Routine</td><td>09/12/2021 11:01 AM EST</td><td> Chest pain, unspecified</td><td> </td> 09/12/2021 11:01:12 AM EST Chest pain, unspecified [facility] Chest pain, unspecified OFFICE OUTPATIENT VISIT 25 MINUTES 05/17/2021 12:00:00 AM EDT [facility] ([facility]) OFFICE CONSULTATION NEW/ESTAB PATIENT 60 MIN 12:00:00 AM EDT [facility] ([facility]) OFFICE OUTPATIENT VISIT 25 MINUTES 03/21/2021 12:00:00 AM EDT [facility] ([facility]) X-Ray Spine Lumbosacral Complete Inc Bending Views Min Of 6 02/22/2021 12:00:00 AM EDT [facility] ([facility]) OFFICE OUTPATIENT NEW 45 MINUTES 02/22/2021 12:00:00 A M EDT [facility] ([facility]) Results ID Date Data Source [id number] 09/12/2021 12:35:35 PM EST [facility] Name Value Range Interpretation Code Description Data Maggie rce(s) Supporting Document(s) &PDF [facility] URIQPc5sRgEXOcQq89/EVOkxZFNww5GkTOuoEEg0YCabFOFvV2SvzVtuPCMTJoHXBWRvJ2rBWTMBILGi vci [file] ICAgICAgICAgICAgICAgICAgICAgICAgICAgICAgICAgICAgICAgICAgICAgICAgICAgICAgICAgICAg BJOsJD2ZITOuXXMwVMEaUHVoQWWwUPTgRLSwAAOwPY AgICAgICAgICAgICAgICAgICAgICAgICAgICAgICAgICAgICAgICAgICAgICAgICAgICAgICAgICAgIC JmMHJlPRVxUIFkSTCeUU8KHLUwIDTlBJSxGIDsLDWlYTZdBRDlFTSgPJMoMWNoRCXyEQPkIHOmPCJzNX AgICAgICAgICAgICAgICAgICAgICAgICAgICAgICAg QQKyGXMbPERwBMUzJEKpQHWnUCKdWIFmJW7ETIQlBMPdDEJvVCYwGOPzNYMtFBJmSLErQBPnSZViGSTi ICAgICAgICAgICAgICAgICAgICAgICAgICAgICAgICAgICAgICAgICAgICAgICAgICAgICAgICAgICAg GSMbFYQjZF9BQQPhTEUkODEgFVFyMNNgSYUaPKMtPL AgICAgICAgICAgICAgICAgICAgICAgICAgICAgICAgICAgICAgICAgICAgICAgICAgICAgICAgICAgIC FaKEGlJYQbVBAaULViEWYsMN1IKXUlLXHxQRBmIVCySMCvNHLdVJUtUFUeLHDcGERsRTHlKQYiMMKuHH AgICAgICAgICAgICAgICAgICAgICAgICAgICAgICAg SAThWIRmJVRvNGIvHMZsHOVbRTTkPEDlPVEvGQ5DNFAkAISzQVPqARXgLXUcNRNwIHCoLZBgGUQrYZTc ICAgICAgICAgICAgICAgICAgICAgICAgICAgICAgICAgICAgICAgICAgICAgICAgICAgICAgICAgICAg INHuLZJnSIOcXK6WUHXvWNVcNVOiXLKsCXMaDEHfBA AgICAgICAgICAgICAgICAgICAgICAgICAgICAgICAgICAgICAgICAgICAgICAgICAgICAgICAgICAgIC VtSLDqTVCsRXEyZRXrGAYuQYZhBG3EBWToMMBjBMHcRZGcRUVwCFQzOMQaXUKkDBBaUYDzURGvFASxPW AgICAgICAgICAgICAgICAgICAgICAgICAgICAgICAg MQXkGSGbXPQyUHJdTUHgBGCdOGBfXQCbUKIsSEVlON4AYFRjCZWmGYReCJTuENOzAHHlDMSlHOIfGGKv ICAgICAgICAgICAgICAgICAgICAgICAgICAgICAgICAgICAgICAgICAgICAgICAgICAgICAgICAgICAg KQNgMSDoXXXkREWsXR1ENC66yZQei7R0CIXvFO6jog c/Ke5DSGmsobPglLTdEZ4UTzIfQO7bjz6TSmCkNL1zia4XHCvAFdDcP9J3qLZvKIYeKWWVLpSgR59cAP qtRh05XJhmIRHuAtDvMEb5Ae9KCnJfG1hlCQLgRuH0QTSqClN8AVVyGuVqKVodER0Au4HftSWwJZt+Pg 3SJN8zd4WbHCryPiUyOK0smz0HTWqPThJsW3S6fUBo K1R0MKmgZk2NTGNnKSWdIjWqMBNMMOsuAL8OEZ8qvcE4CX2YuEBcAKQhCUKwlTCbDGf6T92pkTLxJFup TM7LUST+Akira+Uf2GOBSjNKEqUVUxRcMlYZQNLiOnV33apMPmEVYiBTD7KPBtGp4MAZJuL8RuejWjlEzy kjGwIVGlNJVAUS1UMGzmryNneZHivCkrIL22mIjzFT 4WEm0CUfMxNQ2yso7YlHMrIf2DHUCsCl9BHPGsUTCyGDPjUYC5RBQqTzIgAUuaXUZrPDLtITG8QJTaSD UpRF2NRyDvREGkJlEoKNvfYVIkLDCnct0ADUKaPCCdWDGtBjKuMIIyUHDhWRcnYAVaLPDuEGskAAEhTW NgKX4UMpSrOMPkPSE1NFNnTINpWCKmqs2NNTSqFYTq EsNyRPQeDKFpVLEiZDdlUYUyEBNjFJAaZLFmIJGtWJ5JDiMvYYGsRYKsCHimZYMcMQUdgj2CLBDxXBAh OMBjIjDiGGLaQGKwNMhuZTVqSOJ7KvZdXKOqHORiLN1PCiUsDCRtPMDtCOKoCNSySYYlho8DFYVdCEIa FnB6SeYdSVHlZRVjJArzNUVrHYF1USS1HIYeHYKkCB 1JCkRfXTRjTAQ0QuYgKQPvQSIwrx1CMODfHXGwTTL7NYAfVXWhMUOxMUfrMOAwJHBiAUS5DTNtEZLiBA 3JBpDpRBWvSPJwNPobIHKaLFJahp1UUQBeRCMwPaZ8DuCqTXPgGKAlCZyvBOLpCQNuCVY1LHWtGHZgWD 0EOtKoVHVzAZL9VTAtTNMqMGEnvn6KRILkZJZiXiMd GTElXHFaNDOsOYbmWKHcDYNbDMB8JFYkIJAbCO2NApGoMIWsLHn6YYLxXUKtXZQrna2RJQHwMYBnMbVp VbRvVRJjGCCfEHzvKIWwFQSyLagyWKGgSPVkWX7NLfWwOCMvWjHqWpdnWMYrIATqoy0AvLOidHasok3L ZQwIXw1LpYufFMT1LFqmMf0jwJVsLrQwMUMVMu1Pyn YkAIZjUNVBINjsYYFeLKNrOBT9JKP4HXT9CiDyHOUsLYHbCSRvWULiBIizU6N7FsY1GgI9WrM3SVw4QM BkBKN7W2NiQ3VlQUX9LPCaNCQsLxX+AE7pHXn+Rp5Kc2OnklH1enDhUKxtWDZbFX6TAVLRS5JEXe== ID Date Data Source [id number] 08/10/2021 07:47:00 AM EDT [facility] [address] [place] [address] RESPIRATORY CARE REPORT ==== ---------NAME------- NUMBER SEX AGE ADMIT DISC. XRAY# F/C TYPEROBDIVYA Mcadams [id number] M 25 08/09/21 08/09/21 [id number] SB4 E/R DATE OF : 1995 M/R# [id number] #: [id number] VT-16 LOCATION: EMERGENCY DEPT EKG [id number] COMPLE TE:08/09/21 15:17 CLC [id number] PHYSICIAN: CHINMAY LOUIS Name Value Range Interpretation Code Description Data Maggie rce(s) Supporting Document(s) ID Date Data Source [id number] 08/09/2021 10:30:00 AM EDT [facility] 1 OrderSheet [facility] Emergency Department [address] [place] [address] Phone #: ext- [phone] 08/09/2021 10:29 Patient: FABIO ZHENG Sex: M : 1995 Age: 25yWEIGHT:86.1 kg HEIGHT:66 inches BMI:30.7ALLERGIES: No Known Drug AllergyCHIEF COMPLAINT: syncope, [id number]: SyncopeLAB ORDERSOrder Description Priority Entered Acknowledged InitialedCBC w Diff STAT 12:37 08/09/2021 12:37 Aliza Gay RN PA;CMP STAT 12:37 08/09/2021 12:38 Aliza Gay RN PA;Lactic Acid STAT 12:37 08/09/2021 12:38 Aliza Gay RN PA;Lipase STAT 12:37 08/09/2021 12:38 Aliza Gay RN PA;TSH STAT 12:37 08/09 12:38 Aliza Gay RN PA;Urinalysis (Clean STAT 12:37 08/09/2021 13:56 CodyisCatchTia Gay RN PA;Troponin-T S TAT 13:24 08/09/2021 13:38 Aliza Gay RN PA;DIAGNOSTIC STUDY ORDERSOrder Description Priority Entered Acknowledged InitialedChest 2 View STAT 12:37 08/09/2021 12:38 Aliza(Oxygen?(No)) Robert Gay RN PA; Reason for Study: SyncopeCT Head W/O Cont STAT 12:37 08/09/2021 12:50 Aliza(Oxygen?(No)) Robert Gay RN PA; 2 OrderSheet [facility] Emergency Department [address] [place] [address] Phone #: ext- [phone] 08/09/2021 10:29 Patient: FABIO ZHENG Sex: M : 1995 Age: 25y Reason for Study: SyncopeCT Spine Cervical STAT 12:37 08/09/2021 12:50 DorisW/O Cont Robert Gay RN(Oxygen?(No)) PA; Reason for Study: Pain, Trauma/InjuryMEDICATION/IV/DRIP/FLUID ORDERSOrder Description Priority Entered Acknowledged InitialedZofran ODT PO 8 12:38 08/09/2021 12:41 Anand GUPTA;Tylenol PO 1000 12:38 08/09/2021 12:42 Anand GUPTA;GENERAL ORDERSOrder Description Priority Entered Acknowledged InitialedEKG 12:37 08/09/2021 12:37 Aliza GUPTA;[Electronically signed by Aliza Gay RN (14:12 08/09/2021)][Electronically signed by Robert Louis (22:16 08/09/2021)][Electronically locked by Aliza Gay RN (14:12 08/09/2021)] Name Value Range Interpretation Code Description Data Maggie rce(s) Supporting Document(s) ID Date Data Source [id number] 08/09/2021 10:30:00 AM EDT [facility] 1 Medication Reconciliation Report [facility] Emergency Department [address] [place] [address] Phone #: ext- [phone] 08/09/2021 10:29 Patient: FABIO ZHENG Sex: M : 1995 Age: 25yWeight: 86.1 kgHeight/Length: 66 in.BMI: 30.7ALLERGIES: No Known Drug AllergyThe patient's Home Medications are listed below:NONE.The source(s) of the original Home Medication information:Not obtained.The following Medications were given to the patient in the Emergency Department:Zofran ODT [PO ] PO 8 mg, administered: 12:41 08/09/2021Tylenol [PO] PO 1000 mg, administered: 12:42 08/09/2021The following Medications were prescribed to the patient:None. Name Value Range Interpretation Code Description Data Maggie rce(s) Supporting Document(s) ID Date Data Source [id number] 08/09/2021 10:30:00 AM EDT [facility] 1 Medication Administration Record [facility] Emergency Department [address] [place] [address] Phone #: [phone] 08/09/2021 10:29 Patient: FABIO ZHENG Sex: M : 1995 Age: 25yWeight: 86.1 kgHeight/Length: 66 inBMI: 30.7ALLERGIES: No Known Drug Allergy Date/Time Medication Administered Medication OrderedGiven ZOFRAN ODT [PO] (ONDANSETRON Zofran ODT PO 8 mg12:41 08/09/2021 HCL)Aliza Hagenston, RN Dose: 8 mg Oral Disintegrating Tablets POGiven TYLENOL [PO] (APAP) Tylenol PO 1000 mg12:42 08/09/2021 Dose: 1000 mg Tablets ERICannie ReesNIDHI rouse Name Value Range Interpretation Code Description Data Maggie rce(s) Supporting Document(s) ID Date Data Source [id number] 08/09/2021 10:30:00 AM EDT [facility] 1 General Instructions [facility] Emergency Department [address] [place] [address] Phone #: ext- [phone] 08/09/2021 10:29 Patient: FABIO ZHENG Sex: M : 1995 Age: 25ySyncope of unknown cause.INSTRUCTIONSWarnings: Further evaluation is necessary. It is very important to follow up with a healthcare provider.GENERAL WARNINGS: Return or contact your physician immediately if your condition worsens orchanges unexpectedly, if not improving as expected, or if other problems arise. SPECIFICALLY, return ifthere is no improvement in the fainting.Your Current Medications: .No home medication.Follow-up:Follow up with your doctor tomorrow. Reason for referral: evaluation and treatment. Summary of careprovided to patient.Understanding of the discharge instructions verbalized by patient. ADDITIONAL INFORMATIONFainting: U ncertain CauseFainting (syncope) is a temporary loss of consciousness. It's often associated with a loss of posturaltone. It's also called passing out. It occurs when blood flow to the brain is less than normal. There areother causes of fainting, too. Near-fainting (near-syncope) is very similar to fainting, but you don't fullypass out.Most commonly, fainting is for reasons that aren't necessarily serious or life-threatening, although youmay still get injured. Common triggers of less serious types of fainting include: Sudden fear Pain Nausea Emotional stress Overexertion 2 General Instructions [facility] Emergency Department [address] [place] [address] Phone #: ext- [phone] 08/09/2021 10:29 Patient: FABIO ZHENG Sex: M : 1995 Age: 25ySuddenly standing up after sitting or lying for a long time can also cause fainting.More serious causes of fainting include: Very slow or very fast heartbeat (arrhythmia) Other types of heart disease, such as heart valve disease or coronary artery disease Dehydration Loss of blood Seizure Stroke Ruptured blood vessel in the brainTaking too much high blood pressure medicine can also cause low blood pressure and fainting.Your healthcare provider may be able to tell why you are fainting by reviewing your health history andhearing about your fainting episodes. If the cause of your fainting remains unknown or if yourhealthcare provider is concerned about a more serious cause he or she may determine that you needfurther testing. Testing may include: Echocardiogram. This will take ultrasound pictures of your heart to evaluate the heart's structure and function Stress test. This will check for abnormalities with you heart function or heart rhythm with exercise Tilt table test. This evaluates for changes in blood pressure or heart rate when going from a laying position to standing Heart monitoring. This will evaluate for heart rhythms that are too slow or too fast that may be the cause of your fainting Lab tests. This can check for abnormalities in electrolytes, blood counts and other thingsHome careFollow these guidelines when caring for yourself at home: Rest today. You may go back to your normal activities when you are feeling back to normal. It's best to stay with someone who can check on you for the next 24 hours to watch for another episode of fainting. If you become lightheaded or dizzy, lie down right away and try to prop your feet above the level of your head. Or sit with your head between your knees. 3 General Instructions [facility] Emergency Department [address] [place] [address] Phone #: ext- [phone] 08/09/2021 10:29 Patient: FABIO ZHENG Sex: M : 1995 Age: 25y Because the provider doesn't know the exact cause of your fainting or near-fainting spell, it's possible for you to have another spell without warning. Because of this, don't drive a car or operate dangerous equipment until your healthcare provider says it's OK to do so. Don't take a bath alone. Use a shower instead. Don't swim alone until your healthcare provider says that you are no longer in danger of having another fainting spell.Follow-up careFollow up with your healthcare provider, or as advised.When to seek medical careCall your healthcare provider right away if any of these occur: Another fainting spell that's not explained by the common causes listed above Pain in your chest, arm, neck, jaw, back, or abdomen Shortness of breath Severe headache or seizure Blood in vomit or stools (black or red color) Unexpected vaginal bleeding Your heart beats very rapidly, very slowly, or irregularly (palpitations)Also call your provider if you have signs of stroke: Weakness in an arm or leg or on one side of the face Trouble speaking or seeing Extreme drowsiness, confusion, dizziness, or fainting [id number] [employer]. [address] [place] [address]. All rights reserved. This information is not intended as asubstitute for professional medical care. Always follow your healthcare professional's instructions. You have been given the following additional information: Fainting, Uncertain Cause 4 General Instructions [facility] Emergency Department [address] [place] [address] Phone #: ext- [phone] 08/09/2021 10:29 Patient: FABIO ZHENG Sex: M : 1995 Age: 25y(Electronically signed by ALONSO Reis 08/09/2021 22:16) Name Value Range Interpretation Code Description Data Maggie rce(s) Supporting Document(s) ID Date Data Source [id number] 08/09/2021 10:30:00 AM EDT [facility] 1 Clinical Report - Nurses [facility] Emergency Department [address] [place] [address] Phone #: ext- [phone] 08/09/2021 10:29 Patient: FABIO ZHENG Sex: M : 1995 Age: 25yTRIAGEArrived by private vehicle.Acuity: LEVEL 3.Chief Complaint: SINGLE SYNCOPAL EPISODE.10:40 08/09/21. Alert. No acute distress.This occurred just prior to arrival. Witnessed: Event was witnessed. ( Pt reports he was not feeling well;was walking to bathroom to have BM and got dizzy and had a syncopal episode. States he hit his head onthe floor. Fall was witnessed, but unsure how long he was passed out. Pt complains of head and neck pain,states pain is radiating to bilateral shoulders. Pt alert and oriented in triage.).FANTASMA COMA SCORE: 15- eyes open- spontaneous (4); best verbal response- oriented (5); bestmotor response- obeys commands (6). --10:40 08/09/21 Sharmila Woody R.N.10:35 08/09/21. BP: 147/76. HR: 74. RR: 16. O2 saturation: 97%. Pain level now 8/10. --10:40 08/09/21hSarmila Woody R.N.SEPSIS SCREEN: SIRS SCREEN NEGATIVE. SEPSIS SCREEN NEGATIVE. No suspected or confirmedsigns of infection present. --10:40 08/09/21 Sharmila Woody R.N.12:22 08/09/21. Temp: 97.8 F. --12:25 08/09/21 Aliza Gay RN.Weight: 86.1 kg. Height/Length: 66 inches. BMI: 30.7. --10:38 08/09/21 Sharmila Woody R.N.MedicationsNone. --10:38 08/09/21 Sharmila Woody R.N.AllergiesNo Known Drug Allergy. --10:38 08/09/21 Sharmila Woody R.N.PROBLEMS:Peripheral Arterial Occlusive Disease.Back problems. --10:38 08/09/21 Sharmila Woody R.N.The following entry was modified by Sharmila Woody R.N., 10:38 08/09/21Asthma. --10:37 08/09/21 Sharmila Woody R.N..ADDITIONAL SURGERIES:Biopsy on left hand. 2 Clinical Report - Nurses [facility] Emergency Department [address] [place] [address] Phone #: ext- [phone] 08/09/2021 10:29 Patient: FABIO ZHENG Sex: M : 1995 Age: 25y Cyst removal head. Dental Surgery. Nasal septoplasty. [place] teeth. --10:38 08/09/21 Sharmila Woody R.N. History 10:40 08/09/21. PAST MEDICAL HX: Immunizations: up-to-date. SOCIAL HX: Never smoker. No alcohol use or drug use. He was offered HIV testing but declined and hepatitis C testing but declined. Infectious disease exposure: The patient was not exposed to C-diff, MRSA or Coronavirus. SELF HARM ASSESSMENT: Self harm assessment was performed. The patient answered "no" to the question(s) "Have you recently felt down, depressed, or hopeless?", "Do you have thoughts of harming or killing yourself?", "Do you have a plan for harming or killing yourself?" and "Have you recently had thoughts about harming or killing others?". ABUSE ASSESSMENT: No report of abuse. NUTRITIONAL RISK ASSESSMENT: The nutritional risk assessment revealed no deficiencies. FUNCTIONAL ASSESSMENT: Functional assessment: no impairments noted. LEARNING NEEDS ASSESSMENT: The learning needs assessment revealed no barriers. FALL RISK ASSESSMENT: Fall risk assessment completed. Risk factors identified include dizziness. SKIN INTEGRITY ASSESSMENT: Skin integrity risk assessment completed. No skin integrity risk identified. --10:40 08/09/21 Sharmila Woody R.N. SOCIAL HX: The patient has not traveled outside the [place] Infectious disease exposure: No infectious disease exposure. --12:22 08/09/21 Aliza Gay RN. Interventions 10:40 08/09/21. Identification band on patient. To waiting room. --10:40 08/09/21 Sharmila Woody R.N.PHYSICAL [id number] 08/09/21. Ambulatory to room.GENERAL / NEURO / PSYCH: Oriented X 4. Appears in no acute distress. Alert. Speech within normallimits.HEENT: No facial asymmetry noted. Pupils equal, round and reactive to light. EOM intact.RESPIRATORY: Breath sounds within normal limits. Respirations not labored.CVS: Capillary refill less than 2 seconds. 3 Clinical Report - Nurses [facility] Emergency Department [address] [place] [address] Phone #: ext- [phone] 08/09/2021 10:29 Patient: FABIO ZHENG Sex: M : 1995 Age: 25y GI / : Abdomen soft and nontender. SKIN: Skin is warm and dry. BACK: Vertebral point tenderness over the cervical spine. Soft tissue tenderness in the right mid and lower and left mid and lower cervical paraspinous region. --12:22 08/09/21 Aliza Gay RN.NURSING PROGRESS NOTES10:52 08/09/21. EKG was performed by a tech and shown to the ED physician. EKG obtained in triage,shown to Dr Moy pt back to at this time. --10:52 08/09/21 Sharmila Woody R.N. 12:15 08/09/21. Patient gowned. Two patient identifiers checked. Call light placed in reach. Side rails up x 1. Bed placed in lowest position. Brakes of bed on. Patient ready for evaluation- ED physician and PA notified. --12:22 08/09/21 Aliza Gay RN 12:41 08/09/2021 Zofran ODT (Ondansetron HCl) PO Oral Disintegrating Tablets 8 mg given. Allergies verified and confirmed 5 rights. Information reviewed with patient including reason for taking this medication, signs of allergic reaction and precautions. Verbalizes understanding. --12:41 08/09/21 Aliza Gay RN 12:42 08/09/2021 Tylenol (APAP) PO Tablets 1000 mg given. Allergies verified and confirmed 5 rights. Information reviewed with patient including reason for taking this medication, signs of allergic reaction and precautions. Verbalizes understanding. --12:42 08/09/21 Aliza Gay RN 12:42 08/09/21. Patient ID band checked for patient name and birthdate: patient confirmed. Blood samples drawn by lab per protocol ; labeled in presence of the patient and sent to lab: rainbow set. --12:42 08/09/21 Aliza Gay RN 12:50 08/09/21. Patient transported to [place] by wheelchair with mask and interventional radiology technologist. --12:50 08/09/21 Aliza Gay RN 13:00 08/09/21. BP: 130/81. MAP: 97. HR: 85. RR: 14. O2 saturation: 98%. --13:12 08/09/21 [facility] barge pilotLuz 13:00 08/09/21. Patient returned from [place] by wheelchair with mask and interventional radiology technologist. --13:18 08/09/21 Aliza Gay RN.DISPOSITION / DISCHARGE 14:10 08/09/21. BP: 128/74. HR: 76. RR: 16. O2 saturation: 98%. Temp: 98.1 F. Pain level now 04/13. --14:11 08/09/21 Luz Murray ED 14:11 08/09/21. Condition at departure: improved and stable. No learning barriers present. Discharge instructions provided and reviewed with the patient. Patient verbalized understanding. Written instructions provided in [place]ian. The patient was discharged home. He left ambulatory and via private vehicle. Patient driving. --14:11 08/09/21 Aliza Gay RN. 4 Clinical Report - Nurses [facility] Emergency Department [address] [place] [address] Phone #: ext- [phone] 08/09/2021 10:29 Patient: FABIO ZHENG Sex: M : 1995 Age: 25yLocked/Released at 08/09/2021 14:12 by Aliza Gay RN Name Value Range Interpretation Code Description Data Maggie rce(s) Supporting Document(s) ID Date Data Source [id number] 08/09/2021 10:30:00 AM EDT [facility] 1 Clinical Report - Physicians/Mid Levels [facility] Emergency Department [address] [place] [address] Phone #: ext- [phone] 08/09/2021 10:29 Patient: FABIO ZHENG Sex: M : 1995 Age: 25y Time Seen: 12:20 08/09/2021. Arrived- By private vehicle. Historian- patient.HISTORY OF PRESENT ILLNESS Chief Complaint: SINGLE SYNCOPAL EPISODE. The patient has recovered. This occurred today. Patient was reported to be last known well. It was abrupt in onset. Event was not witnessed. The patient had preceding symptoms of light-headedness, nausea, warmth and abdominal pain. No preceding symptoms of dim vision or chest pain. The patient felt faint, lost consciousness and collapsed. No seizure activity, incontinence or apnea noted. Did not lose pulse. At time of event, he had just stood up. Had a single episode. The episode lasted an unknown duration. The patient currently has weakness. Currently has nausea and headache. Similar symptoms previously. None. Recent medical care: Not recently seen/assessed.REVIEW OF SYSTEMSThe patient has had a headache, abdominal pain and diarrhea. No dizziness, weakness, chest pain,palpitations or vomiting. No black stools, numbness, bloody stools, fever or sore throat. No difficultybreathing, difficulty with urination, skin rash, enlarged lymph nodes or cough. No joint pain.SOCIAL HISTORYNever smoker. No alcohol use or drug use.PHYSICAL EXAMVital Signs: 08/09/2021 10:35 BP: 147/76. MAP: 99. HR: 74. RR: 16. O2 saturation: 97%. Have beenreviewed as normal. Oxygen saturation normal.Appearance: Alert. No acute distress.Head: Mild tenderness in the occipital region.Eyes: Pupils equal, round and reactive to light. No nystagmus.ENT: Normal ENT inspection. TM's normal. Moist mucous membranes. Pharynx normal.Neck: Decrease in ROM. Pain in the neck upon movement. Muscle spasm of the neck. Neck supple.Soft tissue tenderness. Vertebral tenderness.CVS: Normal heart rate and rhythm. Heart sounds normal.Respiratory: No respiratory distress. Breath sounds normal.Abdomen: Soft and nontender. No organomegaly.Back: Normal inspection.Skin: Skin warm and dry. Normal skin color. No rash. Normal skin turgor.Extremities: Extremities exhibit normal ROM. No lower extremity edema.Neuro: Alert. Oriented X 3. Mood/affect normal. Speech normal. Cranial nerves normal (as tested).No cerebellar findings. No motor deficit. No sensory deficit. Reflexes normal. 2 Clinical Report - Physicians/[facility] Emergency Department [address] [place] [address] Phone #: ext- [phone] 08/09/2021 10:29 Patient: FABIO ZHENG Sex: M : 1995 Age: 25yLABS, X-RAYS, AND EKGChest X-ray: No acute disease. Views: PA and lateral. The X-rays were interpreted by the radiologistand contemporaneously by me. Interpretation time: 13:23 08/09/2021.CT C-Spine: No acute findings. Soft tissue normal. No fracture or subluxation. No bony lesion. Thestudy was interpreted by the radiologist and contemporaneously by me. Interpretation time: 13:.CT Head: Normal study. The study was interpreted by the radiologist and contemporaneously by me.Laboratory Tests: Laboratory tests have been ordered, with results reviewed and considered in themedical decision making process. CBC w Diff: (LING: 08/09/2021 12:42) ( MsgRcvd 08/09/2021 12:51) Final results Test Result Flag Units (Reference) CBC W/AUTOMATED DIFF COMPLETE BLOOD COUNT WBC 10.0 10/uL (4.2 - 11.0) RBC 5.29 10/uL (4.50 - 6.30) HEMOGLOBIN 15.7 g/dL (14.0 - 16.0) HEMATOCRIT 45.0 % (41.0 - 51.0) MCV 85.1 fL (80.0 - 94.0) MCH 29.7 pg (27.0 - 34.0) MCHC 34.9 g/dL (31.0 - 36.0) RDW 13.0 % (11.5 - 14.8) PLATELETS 258 10/uL (150 - 450) MPV 9.7 fL (7.4 - 10.4) NEUT 77.5 % (37.0 - 80.0) LYMPH 15.3 L % (25.0 - 40.0) MONO 5.1 % (3.0 - 8.0) EOS 1.1 % (0.0 - 7.0) BASO 0.7 % (0.0 - 2.0) %IG 0.3 H % (0.0 - 0.0) %NRBC 0.0 % (0.0 - 0.0) #NEUT 7.78 H 10/uL (2.00 - 6.90) #LYMPH 1.53 10/uL (0.60 - 3.40) #MONO 0.51 10/uL (0.00 - 0.90) #EOS 0.11 10/uL (0.00 - 0.70) #BASO 0.07 10/uL (0.00 - 0.20) #IG 0.03 10/uL (0.00 - 0.10) #NRBC 0.00 10/uL (0.00 - 0.00) MANUAL DIFF NOT INDICATED RBC MORPH NOT INDICATED CMP: (LING: 08/09/2021 12:42) ( MsgRcvd 08/09/2021 13:19) Final results Test Result Flag Units (Reference) COMPREHENSIVE METABOLIC PANEL COMPREHENSIVE METABOLIC PANEL SODIUM 141 mEq/L (134 - 153) POTASSIUM 4.3 mEq/L (3.6 - 5.0) CHLORIDE 105 mEq/L (98 - 107) CO2 25 MEQ/L (22 - 30) GLUCOSE 100 H MG/DL (70 - 99) BUN 16 MG/DL (7 - 21) CREATININE 0.9 MG/DL (0.7 - 1.5) BUN/CREAT 18 (8 - 27) TOTAL PROTEIN 7.7 G/DL (6.3 - 8.2) 3 Clinical Report - Physicians/Mid Levels [facility] Emergency Department [address] [place] [address] Phone #: ext- [phone] 08/09/2021 10:29 Patient: FABIO ZHENG Sex: M : 1995 Age: 25y ALBUMIN 5.3 H G/DL (3.9 - 5.0) GLOBULIN 2.4 GM/DL (2.4 - 3.2) A/G RATIO 2.2 H (0.8 - 2.0) CALCIUM 10.1 MG/DL (8.4 - 10.2) TOTAL BILI 1.5 H MG/DL (0.2 - 1.3) ALKALINE PHOS 76 U/L (38 - 126) SGOT/AST 21 U/L (5 - 40) SGPT/ALT 17 U/L (7 - 56) ANION GAP 11.0 mmol/L (8.0 - 16.0) AGE 25 yrs NON-AA GFR >60 mL/min AFR AMER GFR >60 mL/min Male GFR Interprentation 20-49 yrs >60 mL/min Normal 50-59 yrs >56 mL/min Normal 60- 69 yrs >49 mL/min Normal 70-79yrs >42 mL/min Normal 80 and above >35 mL/min Normal Female GFR Interpretation 20-39 yrs >60 mL/min Normal 40-49 yrs >58 mL/min Normal 50-59 yrs >51 mL/min Normal 60-69 yrs >45 mL/min Normal 70-79 yrs >39 mL/min Normal 80 and above >32 mL/min Normal Lactic Acid: (LING: 08/09/2021 12:42) ( MsgRcvd 08/09/2021 12:52) Final results Test Result Flag Units (Reference) LACTIC ACID 1.1 MMOL/L (0.2 - 2.2) Lipase: (LING: 08/09/2021 12:42) ( MsgRcvd 08/09/2021 13:18) Final results Test Result Flag Units (Reference) LIPASE 15 U/L (13 - 60).PROGRESS AND PROCEDURESCourse of Care: 14:04 Aug 09 2021. Evaluation after observation. (Discussed risks, benefits, options andpt is agreeable with dx and tx plan.). Patient counseled in person regarding the patient's stable condition, test results, diagnosis and need for follow-up. Patient agrees with plan of care. 14:Aug 09 2021. Disposition: Discharged home in good and improved condition (14:Aug 09 2021).CLINICAL IMPRESSION Syncope of unknown cause.INSTRUCTIONS Warnings: Further evaluation is necessary. It is very important to follow up with a healthcare provider. GENERAL WARNINGS: Return or contact your physician immediately if your condition worsens or changes unexpectedly, if not improving as expected, or if other problems arise. SPECIFICALLY, return if 4 Clinical Report - Physicians/Mid Levels [facility] Emergency Department [address] [place] [address] Phone #: nea- [phone] 08/09/2021 10:29 Patient: FABIO ZHENG Sex: M : 1995 Age: 25y there is no improvement in the fainting. Your Current Medications: . No home medication. Follow-up: Follow up with your doctor tomorrow. Reason for referral: evaluation and treatment. Summary of care provided to patient. Understanding of the discharge instructions verbalized by patient.(Electronically signed by ALONSO Reis 08/09/2021 22:16) Name Value Range Interpretation Code Description Data Maggie rce(s) Supporting Document(s) ID Date Data Source [id number] 08/09/2021 02:43:00 [place] [address] PHONE: [phone] FAX: [phone] Name .................. : NORM Mcadams Acct Number.................. : [id number] ROOM. ................. : VT-16 MR Number ................... : [id number] Stay type ............. : E/R Discharge Date......... ... : 08/09/21 Admit Date ......... : 08/09/21 Admit Phys .................... : TURRIN VIC Date of ....... : 1995 Family Phys ................... : UNKNOWN CO Phone .................. : [phone] Age ................................ : 25 Film# .................. .:[id number] Sex ................................. : M Unsigned transcriptions are preliminary reports and do not represent a medical or legal document CHEST 2 VIEWS [id number] COMPLETE:08/09/21 12:37 [id number] Reason(s): Syncope CHEST TWO VIEWS PA AND LATERAL INDICATION: Syncope COMPARISON: 05/29/2018 FINDINGS: Mediastinal and hilar structures are normal. Cardiac silhouette is unremarkable. Lungs are clear. No pulmonary edema. No pleural effusions or pneumothorax. No fracture identified. Mild thoracic scoliosis convexity to the right unchanged. IMPRESSION: No acute disease. Electronically Reviewed and Signed By Anil Damon MD , 08/09/21 14:43, JWLuis F Transcribe Initials: RUTH ANN, Transcribe Date: 08/09/21 14:22, Dictation Date: Copy for: JOIE ABRAHAM via fax Copy for: EMERGENCY DEPT via modem Copy for: 710 MED REC DISCHARGED Page 1 of 1 Name Value Range Interpretation Code Description Data Maggie rce(s) Supporting Document(s) ID Date Data Source [id number] 08/09/2021 02:43:00 PM EDT [facility] [address] [place] [address] PHONE: [phone] FAX: [phone] Name .................. : NORM Mcadams Acct Number.................. : [id number] ROOM. ................. : VT-16 MR Number ................... : [id number] Stay type ............. : E/R Discharge Date......... ... : 08/09/21 Admit Date ......... : 08/09/21 Admit Phys .................... : CHINMAY HO Date of ....... : 1995 Family Phys ................... : UNKNOWN CO Phone .................. : [phone] Age ................................ : 25 Film# .................. .:[id number] Sex ................................. : M Unsigned transcriptions are preliminary reports and do not represent a medical or legal document CT CERV SPINE W/O PRATIBHA [id number] COMPLETE:08/09/21 12:37 [id number] Reason(s): Pain CT CERVICAL SPINE WITHOUT IV CONTRAST INDICATION: Syncope, pain COMPARISON: None CONTRAST: None PROCEDURE: The patient is scanned axially from C1 to the upper thoracic spine. Multiplanar reconstructions are performed. One or more of the following dose reduction techniques were utilized in effectively lowering the radiation dose for this examination: Automated Exposure Control, Adjustment of the mA and/or kV according to patient size, or Iterative reconstruction. FINDINGS: Visible vertebral bodies show normal alignment. No fracture or significant bone lesion. Disk spaces are well preserved. No disc herniation or significant spinal canal narrowing identified. IMPRESSION: Negative study. Electronically Reviewed and Signed By Anil Damon MD , 08/09/21 14:43, JWLuis F Transcribe Initials: SSR, Transcribe Date: 08/09/21 14:23, Dictation Date: Copy for: JOIE ABRAHAM via fax Copy for: EMERGENCY DEPT via [employer] [address] [place] [address] PHONE: [phone] FAX: [phone] Name .................. : NORM Mcadams Acct Number.................. : [id number] ROOM. ................. : VT-16 Number ................... : [id number] Stay type ............. : E/R Discharge Date......... ... : 08/09/21 Admit Date ......... : 08/09/21 Admit Phys .................... : TURRIN VIC Date of ....... : 1995 Family Phys ................... : UNKNOWN CO Phone .................. : [phone] Age ................................ : 25 Film# .................. .:[id number] Sex ................................. : M Unsigned transcriptions are preliminary reports and do not represent a medical or legal document CT CERV SPINE W/O CONTRAS [id number] COMPLETE:08/09/21 12:37 [id number] Reason(s): Pain Copy for: 710 MED REC DISCHARGED Page 2 of 2 Name Value Range Interpretation Code Description Data Maggie rce(s) Supporting Document(s) ID Date Data Source [id number] 08/09/2021 02:43:00 PM EDT [facility] [address] [place] [address] PHONE: [phone] FAX: [phone] Name .................. : NORM Mcadams Acct Number.................. : [id number] ROOM. ................. : VT-16 MR Number ................... : [id number] Stay type ............. : E/R Discharge Date......... ... : 08/09/21 Admit Date ......... : 08/09/21 Admit Phys .................... : CHINMAY HO Date of ....... : 1995 Family Phys ................... : UNKNOWN CO Phone .................. : [phone] Age ................................ : 25 Film# .................. .:[id number] Sex ................................. : M Unsigned transcriptions are preliminary reports and do not represent a medical or legal document CT HEAD W/O CONTRAST [id number] COMPLETE:08/09/21 12:37 [id number] Shahida son(s): Syncope CT BRAIN WITHOUT IV CONTRAST INDICATION: Syncope COMPARISON: None CONTRAST: None One or more of the following dose reduction techniques were utilized in effectively lowering the radiation dose for this examination: Automated Exposure Control, Adjustment of the mA and/or kV according to patient size, or Iterative Reconstruction. FINDINGS: Ventricles and sulci are normal in appearance. Perez white differentiation is intact. No extra-axial collection or intracranial hemorrhage. No indication of acute or prior ischemic CVA. No mass or mass effect. Calvarium and skull base are wit hin normal limits. To the extent included sinuses are clear. IMPRESSION: Negative study. Electronically Reviewed and Signed By Anil Damon MD , 08/09/21 14:43, JWS Transcribe Initials: RUTH ANN, Transcribe Date: 08/09/21 14:21, Dictation Date: [address] [place] [address] PHONE: [phone] FAX: [phone] Name .................. : NORM Mcadams Acct Number.................. : [id number] ROOM. ................. : VT-16 MR Number ................... : [id number] Stay type ............. : E/R Discharge Date......... ... : 08/09/21 Admit Date ......... : 08/09/21 Admit Phys .................... : CHINMAY HO Date of ....... : 1995 Family Phys ................... : UNKNOWN CO Phone .................. : [phone] Age ................................ : 25 Film# .................. .:[id number] Sex ................................. : M Unsigned transcriptions are preliminary reports and do not represent a medical or legal document CT HEAD W/O CONTRAST [id number] COMPLETE:08/09/21 12:37 [id number] Reason(s): Syncope Copy for: JOIE ABRAHAM via fax Copy for: EMERGENCY DEPT via modem Copy for: 710 MED REC DISCHARGED Page 2 of 2 Name Value Range Interpretation Code Description Data Maggie rce(s) Supporting Document(s) ID Date Data Source [id number] 08/09/2021 02:03:00 PM EDT [facility] Name Value Range Interpretation Code Description Data Maggie rce(s) Supporting Document(s) URINALYSIS [facility] efraín URINALYSIS SOURCE R [facility] COLOR yellow NORMAL: Yellow [facility] CLARITY clear NORMAL: Clear [facility] Specific gravity of Urine by Test strip 1.025 1.001 - 1.030 [facility] 6 5 - [facility] Glucose [Mass/volume] in Urine by Test strip NORM NORMAL: Negat [facility] Bilirubin.total [Presence] in Urine by Test strip NEG NORMAL: Negative [facility] Ketones [Presence] in Urine by Test strip 5 NORMAL: Negative A [facility] Protein [Mass/volume] in Urine by Test strip 15 NORMAL: Negat [facility] Nitrite [Presence] in Urine by Test strip NEG NORMAL: Negative [facility] BLOOD NEG NORMAL: Negative [facility] LEUK EST NEG NORMAL: Negative [facility] Urobilinogen [Mass/volume] in Urine by Test strip NOR less jose daniel n 1.0 mg/dL [facility] MICROSCOPIC See Below [facility] ital WBC 3 - 5 NORMAL: NONE SEEN [facility] Erythrocytes [#/volume] in Urine by Test strip 0 - 1 NORMAL: NON E SEEN [facility] EPITHELIAL FEW NORMAL: NONE SEEN [facility] Bacteria [Presence] in Urine sediment by Light microscopy Tr thien NORMAL: NONE SEEN [facility] Mucus [Presence] in Urine sediment by Light microscopy 1+ NOR MAL: NONE SEEN [facility] ID Date Data Source [id number] 08/09/2021 01:56:00 PM EDT [facility] Name Value Range Interpretation Code Description Data Maggie rce(s) Supporting Document(s) TROPONIN T <0.01 NG/ML 0.00 - 0.10 [facility] TROPONIN T0.1 ng/ml Recommended as the c linical threshold value forTroponin T. ID Date Data Source [id number] 08/09/2021 01:29:00 PM EDT [facility] Name Value Range Interpretation Code Description Data Maggie rce(s) Supporting Document(s) Thyrotropin [Units/volume] in Serum or Plasma by Detec tion limit <= 0.05 mIU/L 0.70 uIU/mL 0.47 - 5.01 [facility] ID Date Data Source [id number] 08/09/2021 01:19:00 PM EDT [facility] Name Value Range Interpretation Code Description Data Maggie rce(s) Supporting Document(s) COMPREHENSIVE METABOLIC PANEL [facility] COMPREHENSIVE METABOLIC PANEL Sodium [Moles/volume] in Serum or Plasma 141 mEq/L 134 - 153 [facility] Potassium [Moles/volume] in Serum or Plasma 4.3 mEq/L 3.6 - 5.0 [facility] Chloride [Moles/volume] in Serum or Plasma 105 mEq/L 98 - 107 [facility] Carbon dioxide, total [Moles/volume] in Serum or Plasma 25 MEQ/L 22 - 30 [facility] Glucose [Mass/volume] in Serum or Plasma 100 MG/DL 70 - 99 H [facility] BUN 16 MG/DL 7 - 21 [facility] Creatinine [Mass/volume] in Serum or Plasma 0.9 MG/DL 0.7 - 1.5 [facility] BUN/CREAT 18 8 - 27 [facility] Protein [Mass/volume] in Serum or Plasma 7.7 G/DL 6.3 - 8.2 [facility] Albumin [Mass/volume] in Serum or Plasma 5.3 G/DL 3.9 - 5.0 H [facility] Globulin [Mass/volume] in Serum by calculation 2.4 GM/DL 2.4 - 3.2 [facility] A/G RATIO 2.2 0.8 - 2.0 H [facility] Calcium [Mass/volume] in Serum or Plasma 10.1 MG/DL 8.4 - 10.2 [facility] Bilirubin.total [Mass/volume] in Serum or Plasma 1.5 MG/DL 0.2 - 1.3 H [facility] Alkaline phosphatase [Enzymatic activity/volume] in Serum or Plasma 76 U/L 38 - 126 [facility] Aspartate aminotransferase [Enzymatic activity/volume] in Serum or Plasma 21 U/L 5 - 40 [facility] Alanine aminotransferase [Enzymatic activity/volume] in Seru m or Plasma 17 U/L 7 - 56 [facility] Anion gap 3 in Serum or Plasma 11.0 mmol/L 8.0 - 16.0 [facility] AGE 25 yrs [facility] NON-AA GFR >60 mL/min [facility] ital AFR AMER GFR >60 mL/min [facility] Male GFR In terprentation 20-49 yrs >60 mL/min Normal 50-59 yrs >56 mL/min Normal 60-69 yrs >49 mL/min Normal 70-79yrs >42 mL/min Normal 80 and above >35 mL/min Normal Female GFR Interpretation 20-39 yrs >60 mL/min Normal 40-49 yrs >58 mL/min Normal 50-59 yrs >51 mL/min Normal 60-69 yrs >45 mL/min Normal 70-79 yrs >39 mL/min Normal 80 and above >32 mL/min Normal ID Date Data Source [id number] 08/09/2021 01:18:00 PM EDT [facility] Name Value Range Interpretation Code Description Data Maggie rce(s) Supporting Document(s) Lipase [Enzymatic activity/volume] in Serum or Plasma 15 U/L 13 - 60 [facility] ID Date Data Source [id number] 08/09/2021 12:52:00 PM EDT [facility] Name Value Range Interpretation Code Description Data Maggie rce(s) Supporting Document(s) Lactate [Moles/volume] in Serum or Plasma 1.1 MMOL/L 0.2 - 2.2 [facility] ID Date Data Source [id number] 08/09/2021 12:51:00 PM EDT [facility] Name Value Range Interpretation Code Description Data Maggie rce(s) Supporting Document(s) CBC W/AUTOMATED DIFF [facility] COMPLETE BLOOD COUNT Leukocytes [#/volume] in Blood by Automated count 10.0 10^3/uL 4.2 - 11.0 [facility] Erythrocytes [#/volume] in Blood by Automated count 5.29 10^6/uL 4. 50 - 6.30 [facility] Hemoglobin [Mass/volume] in Blood 15.7 g/dL 14.0 - 16.0 [facility] Hematocrit [Volume Fraction] of Blood by Automated count 45.0 % 4 1.0 - 51.0 [facility] Erythrocyte mean corpuscular volume [Entitic volume] by Auto mated count 85.1 fL 80.0 - 94.0 [facility] Erythrocyte mean corpuscular hemoglobin [Entitic mass] by Automated count 29.7 pg 27.0 - 34.0 [facility] Erythrocyte mean corpuscular hemoglobin concentration [Mass/volume] by Automated count 34.9 g/dL 31.0 - 36.0 [facility] Erythrocyte distribution width [Ratio] by Automated count 13.0 % 11.5 - 14.8 [facility] Platelets [#/volume] in Blood by Automated count 258 10^3/uL 150 - 45 0 [facility] Platelet mean volume [Entitic volume] in Blood by Automated count 9.7 fL 7.4 - 10.4 [facility] Neutrophils/100 leukocytes in Blood by Automated count 77.5 % 37. 0 - 80.0 [facility] Lymphocytes/100 leukocytes in Blood by Manual count 15.3 % 25.0 - 40.0 L [facility] Monocytes/100 leukocytes in Blood by Automated count 5.1 % 3.0 - 8.0 [facility] Eosinophils/100 leukocytes in Blood by Automated count 1.1 % 0.0 - 7.0 [facility] Basophils/100 leukocytes in Blood by Automated count 0.7 % 0.0 - 2.0 [facility] %IG 0.3 % 0.0 - 0.0 H [facility] al %NRBC 0.0 % 0.0 - 0.0 [facility] al Neutrophils [#/volume] in Blood by Automated count 7.78 10^3/uL 2.00 - 6.90 H [facility] Lymphocytes [#/volume] in Blood by Automated count 1.53 10^3/uL 0.60 - 3.40 [facility] Monocytes [#/volume] in Blood by Automated count 0.51 10^3/uL 0.00 - 0.90 [facility] Eosinophils [#/volume] in Blood by Automated count 0.11 10^3/uL 0.00 - 0.70 [facility] Basophils [#/volume] in Blood by Automated count 0.07 10^3/uL 0.00 - 0.20 [facility] #IG 0.03 10^3/uL 0.00 - 0.10 [facility] #NRBC 0.00 10^3/uL 0.00 - 0.00 [facility] MANUAL DIFF NOT INDICATED [facility] RBC MORPH NOT INDICATED [facility] ID Date Data Source [id number] 10/05/2020 12:53:00 PM EST [facility] Name Value Range Interpretation Code Description Data Maggie rce(s) Supporting Document(s) [facility] 2 [facility] This lab was ordered by [facility] and reported by [facility]. Procedure Social History No Information Vital Signs ID Date Data Source UNK Name Value Range Interpretation Code Description Data Source(s) Body temperature 97.0 [degF] 97.0 [degF] [facility] ([facility]) Body height 67 [in_i] 67 [in_i] [facility] ([facility]) 5'7" Body weight 175.00 [lb_av] 175.00 [lb_av] [facility] T ([facility]) Body mass index (BMI) [Ratio] 27.4 kg/m2 27.4 k g/m2 [facility] ([facility]) Body height 66 [in_i] 66 [in_i] [facility] ([facility]) 5'6" Body temperature 97.2 [degF] 97.2 [degF] [facility] ([facility]) Body weight 175.00 [lb_av] 175.00 [lb_av] [facility] T ([facility]) Body mass index (BMI) [Ratio] 28.2 kg/m2 28.2 k g/m2 [facility] ([facility])
--- OUTSIDE RECORDS SUMMARY | 2021-10-10 16:04 | CCD ---
Author Author [facility] Organization [facility] Address Unknown Phone Unavailable Care Team Providers Care [employer] Instrument Repairer Name Role Phone Henry, Bry Unavailable Unavailable Henry, Bry Unavailable Unavailable Henry, Bry Unavailable Unavailable Henry, Bry Unavailable Unavailable Henry, Bry Unavailable Unavailable Henry, Bry Unavailable Unavailable Henry, Bry Unavailable Unavailable Henry, Bry Unavailable Unavailable Henry, Bry Unavailable Unavailable Henry, Bry Unavailable Unavailable Henry, Bry Unavailable Unavailable Henry, Bry Unavailable Unavailable Ehnry, Bry Unavailable Unavailable Henry, Bry Unavailable Unavailable [...] Unavailable Unavailable Henry, Bry Unavailable Unavailable UNKNOWN, [facility] Unavailable Unavailable Dwain Hernandez DO Unavailable Unavailable Dwain Hernandez DO Unavailable Unavailable Dwain Hernandez DO Unavailable Unavailable Dwain Hernandez DO Unavailable Unavailable Dwain Hernandez DO Unavailable Unavailable Dwain Hernandez DO Unavailable Unavailable Dwain Hernandez DO Unavailable Unavailable Dwain Hernandez DO Unavailable Unavailable Hernandez, B Khang DO Unavailable Unavailable Hernandez, B Khang DO Unavailable Unavailable Hernandez, B Khang DO Unavailable Unavailable Hernandez, B Khang DO Unavailable Unavailable Hernandez, B Khang DO Unavailable Unavailable Hernandez, B Khang DO Unavailable Unavailable Hernandez, B Khnag DO Unavailable Unavailable Hernandez, B Khang DO Unavailable Unavailable Andrez, Rico Zhao MD Unavailable [...] Pacheco, Xander Davis MD Unavailable Unavailable Pacheco, L Ryan MD Unavailable Unavailable Pacheco, L Ryan MD Unavailable Unavailable Pacheco, L Ryan MD Unavailable Unavailable Pacheco, L Ryan MD Unavailable Unavailable Pacheco, L Ryan MD Unavailable Unavailable Pacheco, L Ryan MD Unavailable Unavailable Pacheco, L Ryan MD Unavailable Unavailable Pacheco, L Ryan MD Unavailable Unavailable Pacheco, L Ryan MD Unavailable Unavailable Pacheco, L Ryan MD Unavailable Unavailable Pacheco, L Ryan MD Unavailable Unavailable Pacheco, L Ryan MD Unavailable Unavailable Pacheco, L Ryan MD Unavailable Unavailable Pacheco, L Ryan MD Unavailable Unavailable Pacheco, L Ryan MD Unavailable Unavailable Pacheco, L Ryan MD Unavailable Unavailable Re-disclosure Warning The records [...] is protected by Article 27-F of the [facility] Public Health law. If you continue you may have access to information: Regarding HIV / AIDS; Provided by facilities licensed or operated by the [facility] Office of Mental Health; or Provided by the [facility] Office for People With Developmental Disabilities. If such information is present, then the following [facility] mandated warning applies: This information has been [...] law may result in a fine or correction sentence or both. A general authorization for the release of medical or other information is NOT sufficient authorization for further disc losure. Allergies and Adverse Reactions Type Description Substance Reaction Status Data Source(s ) Propensity to adverse reactions NO KNOWN ALLERGIES NO KNOWN ALLERGIES [facility] Family History Family Member Name Family Member Gender Family Member Status Date o f Status Description Data Source(s) Unknown Unknown Problem [facility] Unknown Unknown Problem [facility] ([facility], ) Encounters Encounter Providers Location Date Indications Data Source(s ) Preadmit Attender: Khang Hernandez 10/10/2021 03:19:00 PM [facility] Outpatient Referrer: Pavel Maguire MD ES1-SJ.[facility] 2020 10:32:25 AM EST - 09/12/2021 11:59:00 PM [facility] Patient discharged. Emergency Attender: DEONTE MOYConsultant: ISRAEL MOONEY 08/09/2021 10:30:00 AM EDT - 08/09/2021 02:11:00 PM EDT [facility] Patient discharged. Outpatient Attender: Bry Henry Physical Therapy 05/17/2021 11:00:0 0 AM EDT [facility] ([facility] Outpatient Attender: Bry Henry Physical Therapy 03/29/2021 11:00:0 0 AM EDT [facility] ([facility] ) Outpatient Attender: Ryan Pacheco MD Physical Therapy 03/21/2021 0 8:15:00 AM EDT [facility] ([facility] ) Outpatient Attender: Ryan Pacheco MD Physical Therapy 02/22/2021 0 3:15:00 PM EDT [facility] ([facility] ) Immunizations Vaccine Date Status Description Data Source(s) COVID-19 VACCINE Pfizer 02/01/2021 12:00:00 AM EDT completed [facility] Vaccine Series Complete: NOThis Data was Submitted to [facility]. Medications Medication Brand Name Start Date Product [...] type / Coverage type Policy ID Covered libertarian ID Covered libertarian's relationship to castillo Policy Castillo Plan Information [facility] ACTIVE DUTY [id number] SP [id number] [facility] ACT[facility] D[facility] [id number] SP [id number] [facility] (2018) [facility] ([facility]) [id number] Self [id number] [facility] (2018) [facility] ([facility]) [id number] Self [id number] [facility] (2017) [facility] ([facility]) [id number] 100 [id number] Self [id number] U [id number] Self [id number] U [id number] Self [id number] [employer] [id number] Raegan [id number] [facility] ACTIVE DUTY [id number] SP [id number] [facility] (2017) [facility] ([facility]) [id number] 100 [id number] Self [id number] [facility] HUMANA - PHYSICIAN [id number] 18 [id number] [facility] (2017) [facility] ([facility]) [id number] Self [id number] COMMERCIAL GENERIC [id number] 2 [id number] [facility] HUMANA - O/P [id number] 18 [id number] HUMANA [facility] O [id number] S [id number] Problems, Conditions, and Diagnoses Code Display Name Description Problem Type Effective Dates Data Source(s) R07.9 Chest pain, unspecified Chest pain, unspecified Diagno sis 09/12/2021 10:32:25 AM EST [facility] R55 Syncope and collapse Syncope and collapse Diagnosis 08/09/2021 10:30:00 AM EDT [facility] Surgeries/Procedures Procedure Description Date Indications Data Source(s) ECHO TTHRC R-T 2D W/WOM-MODE COMPL SPEC&COLR DOP <td>E CHOCARDIOGRAM TRANSTHORACIC</td><td>Routine</td><td>09/12/2021 11:01 AM EST</td><td> Chest pain, unspecified</td><td> </td> 09/12/2021 11:01:12 AM EST Chest pain, unspecified [facility] Chest pain, unspecified OFFICE OUTPATIENT VISIT 25 MINUTES 05/17/2021 12:00:00 AM EDT [facility] ([facility]) OFFICE CONSULTATION NEW/ESTAB PATIENT 60 MIN 12:00:00 AM EDT [facility] ([facility]) OFFICE OUTPATIENT VISIT 25 MINUTES 03/21/2021 12:00:00 AM EDT [facility] ([facility]) X-Ray Spine Lumbosacral Complete Inc Bending Views Min Of 6 02/22/2021 12:00:00 AM EDT [facility] ([facility]) OFFICE OUTPATIENT NEW 45 MINUTES 02/22/2021 12:00:00 A M EDT [facility] ([facility]) Results ID Date Data Source [id number] 09/12/2021 12:35:35 PM EST [facility] Name Value Range Interpretation Code Description Data Maggie rce(s) Supporting Document(s) &PDF [facility] EDTGYh8pYeEHOaIg52/MCVshUMZgp8SdQPcpPDe0TEtwKGOyY5SxmDylQOPFZsFFPFEhS8fZKLIRNVLn vci [file] ICAgICAgICAgICAgICAgICAgICAgICAgICAgICAgICAgICAgICAgICAgICAgICAgICAgICAgICAgICAg RAYhUE2TCPNrXSErXCEjRPZaLLGkGOWsAEMoIJLlUV AgICAgICAgICAgICAgICAgICAgICAgICAgICAgICAgICAgICAgICAgICAgICAgICAgICAgICAgICAgIC WuUXBoUXWvKTNoTDYgDC7GRFZePNOlDKIdJTDtYSVsHMLqQTWxMVBuYZVeIBJrTMQaJTJlWDKvJJFuFF AgICAgICAgICAgICAgICAgICAgICAgICAgICAgICAg VCYcPPNvOZOpHHJrNUBjKAJeRTHxIEYrEZ5ASQBmEEWhKJScISAvSYPpRUUdRSDzYPAdKBTmKGNyPCCi ICAgICAgICAgICAgICAgICAgICAgICAgICAgICAgICAgICAgICAgICAgICAgICAgICAgICAgICAgICAg TXWeDLLaRU3DVVGrJLCjAGUuYTBiOILjSWXwACQdYI AgICAgICAgICAgICAgICAgICAgICAgICAgICAgICAgICAgICAgICAgICAgICAgICAgICAgICAgICAgIC BgOMFgBDPpPJObONHmHUBxOE0XPPDdKACdJHSmUNAqBVZvZIFkLLNcMPWwBYQkGGImICCgXOYwCUYlQV AgICAgICAgICAgICAgICAgICAgICAgICAgICAgICAg MXUoQQRqZNTlHDVxNKHcUFYvEBXmBGGhXZQrTG7TSFZxTGJqFEEjXFWjWYYfACTcJWQvJMYjULKfUCSo ICAgICAgICAgICAgICAgICAgICAgICAgICAgICAgICAgICAgICAgICAgICAgICAgICAgICAgICAgICAg QYXzRWJhQGDjKB0OWRAzQHSvCCTxVLXoUGXzPVNhLG AgICAgICAgICAgICAgICAgICAgICAgICAgICAgICAgICAgICAgICAgICAgICAgICAgICAgICAgICAgIC KeOSFhYEKlTFZeKVVaIHGyZLTgHB9MQIFwHBLdNTVfZLKdQECoSONjSQPoBDHmACBzCRJiVNBrNTFqAZ AgICAgICAgICAgICAgICAgICAgICAgICAgICAgICAg XMCfNZEbYGSsDZXtYSYzIHZeUMNmGEOtXYCcIQLvPM2GIIXkHCYaXJIxXZOzRCIgSRRiJQPqFBJiZXXx ICAgICAgICAgICAgICAgICAgICAgICAgICAgICAgICAgICAgICAgICAgICAgICAgICAgICAgICAgICAg KBKdFSGsNUOcJCHuTQ7LST61zITyk8D6NALzSK4zsc c/Xu4ALRfvrrAqjFTwFA1OKtHgCJ1tjd9RZlBwRW9csg0JXKtDXrVmB7G1nLJeGCGeYZRAJeKcY20dXK smHa11OAspVRHwQzRwASu7Pv2AOmMuE0aiWAIlYpZ8LSPeFlR9BYLwZlJcXSjlWJ4Wr5IghKRlISx+Pg 1NZZ8jz9CeMXzwXgQgHC4nnk2UVHyGSwInC6H6vSDw Z9N8LQjrEs8OZFZcOQHgZkGoSSYAZZmcPV8ZKE3zzhL4XK2ZvJOhOAOdHUNyaPVdDTz4L01zzHYpRYyb VN7DDSE+Akira+Tu3QBIGqDWGbDVGwAqQqETDKNxSlI20jvEBxEQYiXNN5FLQzCk0LEMIxI3RggrZgnZef lzMxOSRtGWBQNL1FSQvxbdYbcLKqbTosJK82hRngDY 7OHu1FQoJrXQ9ypb3XpGNnIl6GGDFvEv8XBXDuQVTsOMYoVIN8JVXpHcTgVEwhXFLdSJEhVVH5SIUyZV JtTY6RZyYqDBOgIsWfLNkoKCEbPWNncv7ONEDdSAKoEQAcOvFkHBHvJIMuCUgaJNHpSAJqIKzkQUYmCH FeGJ0CAgBdLVNlSOH3CUYmIIFeQXComy5OJZNrHGCy RjWzRWPmRQEsOLOiWVldUABnGNOyUOJbZMVnRMKmBW1FCrRkMVVuUCYzUMmmEQNaJKGafv4VHNZmBBHs NMEbDsEiRSYlMCGvUIuvJKNsSRB5InWwDVSvJDPrBS1THsDpDGCdPXQjMTSaQWXmFWDdyu0XHHFsFPAc EhN2HoZkIXQnUBRgABxvKBRsDOV2CZY1USXkUVYvVL 7TDxIaPAMhEFZ3OdIpJEFzRZUizm5VYAUbWIFnUWD6YCBxMGQdVLDcFLovGGXoENNoLZG1DBIqSWBgWF 9QKmYkVCEtCOXmHUwxZVIvURAais0CBCPoBVJdJlH9KkVmAIPyBEUrCZsuFUPuZZQkWFG8ZVMvIGIcMK 5JNhBnNOLjYGW8JCGjJDTtFBPgxt8BESNqJHPtIgMz XXNxXCJpPYOtRDhmLOCrWNQwEJZ0GPYmMXDcAA8MAlVoBMUfPXi0KBQzONRlKWNtmi5CUNIbWWAmGeBs BnFxZKFiAMSqFEvnFFSbAYZmFcjzZHXbPILkIX3FRhXjYFNgGpVgXedkOSZtENDdfh0WqQQzaOrvxs6E WLjEEs5HdItmPQA5GQwrXp0ocEImAsXfAEEAQs2Afi IcDOZdNOOSNZpoUMFlYHLaLWU8UNM9SAE6DmGjRGYjFIDoWTZfLOHjUIrkP0B3UnJ6NaZ5GwA2KBr5KG ShQQF3N6JkW0JkHDQ5JRQlSOIaLfG+MH1tUXn+Hh5Iw0ElllE2slBrOLzmBTTmEZ5EMBUIX3OORf== ID Date Data Source [id number] 08/10/2021 07:47:00 AM EDT [facility] [address] [place] [address] RESPIRATORY CARE REPORT ==== ---------NAME------- NUMBER SEX AGE ADMIT DISC. XRAY# F/C TYPENORM Mcadams [id number] M 25 08/09/21 08/09/21 [id number] SB4 E/R DATE OF : 1995 M/R# [id number] #: [id number] VT-16 LOCATION: EMERGENCY DEPT EKG [id number] COMPLE TE:08/09/21 15:17 CLC 43716 PHYSICIAN: CHINMAY LOUIS Name Value Range Interpretation Code Description Data Maggie rce(s) Supporting Document(s) ID Date Data Source [id number] 08/09/2021 10:30:00 AM EDT [facility] 1 OrderSheet [facility] Emergency Department [address] [place] [address] Phone #: ext- [phone] 08/09/2021 10:29 Patient: FABIO ZHENG Sex: M : 1995 Age: 25yWEIGHT:86.1 kg HEIGHT:66 inches BMI:30.7ALLERGIES: No Known Drug AllergyCHIEF COMPLAINT: syncope, [id number]: SyncopeLAB ORDERSOrder Description Priority Entered Acknowledged InitialedCBC w Diff STAT 12:37 08/09/2021 12:37 Aliza GUPTA;CMP STAT 12:37 08/09/2021 12:38 Aliza GUPTA;Lactic Acid STAT 12:37 08/09/2021 12:38 Aliza GUPTA;Lipase STAT 12:37 08/09/2021 12:38 Aliza Gay RN PA;TSH STAT 12:37 08/09 12:38 Aliza Gay RN PA;Urinalysis (Clean STAT 12:37 08/09/2021 13:56 DorisCatch) Robert Gay RN PA;Troponin-T S TAT 13:24 08/09/2021 13:38 Aliza Gay RN PA;DIAGNOSTIC STUDY ORDERSOrder Description Priority Entered Acknowledged InitialedChest 2 View STAT 12:37 08/09/2021 12:38 Aliza(Oxygen?(No)) Robert Gay RN PA; Reason for Study: SyncopeCT Head W/O Cont STAT 12:37 08/09/2021 12:50 Aliza(Oxygen?(No)) Robert Gay RN PA; 2 OrderSheet [facility] Emergency Department [address] [place] [address] Phone #: ext- [phone] 08/09/2021 10:29 Patient: [...] Entered Acknowledged InitialedEKG 12:37 08/09/2021 12:37 Aliza Gay RN PA;[Electronically signed by Aliza Gay RN (14:12 08/09/2021)][Electronically signed by Robert Louis (22:16 08/09/2021)][Electronically locked by Aliza Gay RN (14:12 08/09/2021)] Name Value Range Interpretation Code Description Data Maggie rce(s) Supporting Document(s) ID Date Data Source [id number] 08/09/2021 10:30:00 AM EDT [facility] 1 Medication Reconciliation Report [facility] Emergency Department [address] [place] [address] Phone #: ext- [phone] 08/09/2021 10:29 Patient: [...] rce(s) Supporting Document(s) ID Date Data Source [id number] 08/09/2021 10:30:00 AM EDT [facility] 1 Medication Administration Record [facility] Emergency Department [address] [place] [address] Phone #: [phone]- [phone] 08/09/2021 10:29 Patient: FABIO ZHENG Sex: M : 1995 Age: 25yWeight: 86.1 kgHeight/Length: 66 inBMI: 30.7ALLERGIES: No Known Drug Allergy Date/Time Medication Administered Medication OrderedGiven ZOFRAN ODT [PO] (ONDANSETRON Zofran ODT PO 8 mg12:41 08/09/2021 HCL)Aliza Gay RN Dose: 8 mg Oral Disintegrating Tablets POGiven TYLENOL [PO] (APAP) Tylenol PO 1000 mg12:42 08/09/2021 Dose: 1000 mg Tablets Rupali Gay RN Name Value Range Interpretation Code Description Data Maggie rce(s) Supporting Document(s) ID Date Data Source [id number] 08/09/2021 10:30:00 AM EDT [facility] 1 General Instructions [facility] Emergency Department [address] [place] [address] Phone #: ext- [phone] 08/09/2021 10:29 Patient: [...] Nausea Emotional stress Overexertion 2 General Instructions [facility] Emergency Department [address] [place] [address] Phone #: ext- [phone] 08/09/2021 10:29 Patient: FABIO ZHENG Sex: M [...] head between your knees. 3 General Instructions [facility] Emergency Department [address] [place] [address] Phone #: ext- [phone] 08/09/2021 10:29 Patient: [...] seeing Extreme drowsiness, confusion, dizziness, or fainting [employer]. [address] [place] [address], [place] [address]. All rights reserved. This information is not intended as asubstitute for professional medical care. Always follow your healthcare professional's instructions. You have been given the following additional information: Fainting, Uncertain Cause 4 General Instructions [facility] Emergency Department [address] [place] [address] Phone #: ext- [phone] 08/09/2021 10:29 Patient: FABIO ZHENG Sex: M : 1995 Age: 25y(Electronically signed by ALONSO Reis 08/09/2021 22:16) Name Value Range Interpretation Code Description Data Maggie rce(s) Supporting Document(s) ID Date Data Source [id number] 08/09/2021 10:30:00 AM EDT [facility] 1 Clinical Report - Nurses [facility] Emergency Department [address] [place] [address] Phone #: ext- [phone] 08/09/2021 10:29 Patient: [...] 16. O2 saturation: 97%. Pain level now 06/13. --10:40 08/09/21Sharmila Woody R.N.SEPSIS SCREEN: SIRS SCREEN NEGATIVE. SEPSIS [...] left hand. 2 Clinical Report - Nurses [facility] Emergency Department [address] [place] [address] Phone #: ext- [phone] 08/09/2021 10:29 Patient: FABIO ZHEGNN: [id number] Sex: M : 1995 Age: 25y Cyst removal head. Dental Surgery. Nasal septoplasty. Readlyn teeth. --10:38 08/09/21 Sharmila Woody R.N. History [...] waiting room. --10:40 08/09/21 Sharmila Woody R.N.PHYSICAL [id number]:18 08/09/21. Ambulatory to room.GENERAL / NEURO / PSYCH: Oriented X 4. Appears in no acute distress. Alert. Speech within normallimits.HEENT: No facial asymmetry noted. Pupils equal, round and reactive to light. EOM intact.RESPIRATORY: Breath sounds within normal limits. Respirations not labored.CVS: Capillary refill less than 2 seconds. 3 Clinical Report - Nurses [facility] Emergency Department [address] [place] [address] Phone #: ext- [phone] 08/09/2021 10:29 Patient: FABIO ZHENG Sex: M [...] physician. EKG obtained in triage,shown to Dr Moy, pt back to at this time. --10:52 08/09/21 Sharmila Woody, RrPamod 12:15 08/09/21. Patient gowned. Two patient identifiers [...] Gay RN 12:50 08/09/21. 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 --12:50 08/09/21 Aliza Gay RN 13:00 08/09/21. BP: 130/81. MAP: 97. HR: 85. RR: 14. O2 saturation: 98%. --13:12 08/09/21 [facility] 13:00 08/09/21. Patient returned from [place] by wheelchair with mask and vocational technical education teacher. --13:18 08/09/21 Aliza Gay RN.DISPOSITION / DISCHARGE 14:10 08/09/21. BP: 128/74. HR: 76. RR: 16. O2 saturation: 98%. Temp: 98.1 F. Pain level now 04/13. --14:11 08/09/21 [facility] 14:11 08/09/21. Condition at departure: improved and stable. No learning barriers present. Discharge instructions provided and reviewed with the patient. Patient verbalized understanding. Written instructions provided in [place]. The patient was discharged home. He left ambulatory and via private vehicle. Patient driving. --14:11 08/09/21 Aliza Gay RN. 4 Clinical Report - Nurses [facility] Emergency Department [address] [place] [address] Phone #: ext- [phone] 08/09/2021 10:29 Patient: FABIO ZHENG Sex: M : 1995 Age: 25yLocked/Released at 08/09/2021 14:12 by Aliza Gay RN Name Value Range Interpretation Code Description Data Maggie rce(s) Supporting Document(s) ID Date Data Source [id number] 08/09/2021 [facility] - [facility]/Mid Levels [facility] Emergency Department [address] [place] [address] Phone #: ext- [phone] 08/09/2021 10:29 Patient: [...] deficit. Reflexes normal. 2 Clinical Report - Physicians/[facility] Emergency Department [address] [place] [address] Phone #: ext- [phone] 08/09/2021 10:29 Patient: [...] 8.2) 3 Clinical Report - Physicians/Mid Levels [facility] Emergency Department [address] [place] [address] Phone #: ext- [phone] 08/09/2021 10:29 Patient: [...] (13 - 60).PROGRESS AND PROCEDURESCourse of Care: 14:Aug 09 2021. Evaluation after observation. (Discussed risks, [...] if 4 Clinical Report - Physicians/Mid Levels [facility] Emergency Department [address] [place] [address] Phone #: taa- [phone] 08/09/2021 10:29 Patient: FABIO ZHENG Sex: M [...] rce(s) Supporting Document(s) ID Date Data Source [id number] 08/09/2021 02:43:00 PM EDT [facility] [address] [place] [address] PHONE: [phone] FAX: [phone] Name .................. : NORM Mcadams Acct Number.................. : [id number] ROOM. ................. : VT-16 MR Number ................... : [id number] Stay type ............. : E/R Discharge Date......... ... : 08/09/21 Admit Date ......... : 08/09/21 Admit Phys .................... : CHINMAY VIC Date of ....... : 1995 Family Phys ................... : UNKNOWN CO Phone .................. : [phone] Age ................................ : 25 Film# .................. .:[id number] Sex ................................. : M Unsigned transcriptions are preliminary reports and do not represent a medical or legal document CHEST 2 VIEWS 38795 COMPLETE:08/09/21 12:37 [id number] Reason(s): Syncope CHEST TWO VIEWS PA AND [...] F Transcribe Initials: SSR, Transcribe Date: 08/09/21 14:22, Dictation Date: Copy for: JOIE ABRAHAM via fax Copy for: EMERGENCY DEPT via modem Copy for: 710 MED REC DISCHARGED Page 1 of 1 Name Value Range Interpretation Code Description Data Maggie rce(s) Supporting Document(s) ID Date Data Source [id number] 08/09/2021 02:43:00 PM EDT [facility] [address] [place] [address] PHONE: [phone] FAX: [phone] Name .................. : NORM Mcadams Acct Number.................. : [id number] ROOM. ................. : VT-16 Number ................... : [id number] Stay type ............. : E/R Discharge Date......... ... : 08/09/21 Admit Date ......... : 08/09/21 Admit Phys .................... : TURRIN VIC Date of ....... : 1995 Family Phys ................... : UNKNOWN CO Phone .................. : [phone] Age ................................ : 25 Film# .................. .:[id number] Sex ................................. : M Unsigned transcriptions are preliminary reports and do not represent a medical or legal document CT CERV SPINE W/O CONTRAS [id number] COMPLETE:08/09/21 12:37 [id number] Reason(s): Pain CT CERVICAL SPINE WITHOUT IV [...] Transcribe Initials: RUTH ANN, Transcribe Date: 08/09/21 14:23, Dictation Date: Copy for: JOIE ABRAHAM via fax Copy for: EMERGENCY DEPT via [facility] Page 1 of 2 [place] [address] PHONE: [phone] FAX: [phone] Name .................. : NORM Mcadams Acct Number.................. : [id number] ROOM. ................. : VT-16 Number ................... : [id number] Stay type ............. : E/R Discharge Date......... ... : 08/09/21 Admit Date ......... : 08/09/21 Admit Phys .................... : CHINMAY HO Date of ....... : 1995 Family Phys ................... : UNKNOWN CO Phone .................. : [phone] Age ................................ : 25 Film# .................. .:[id number] Sex ................................. : M Unsigned transcriptions are preliminary reports and do not represent a medical or legal document CT CERV SPINE W/O CONTRAS [id number] COMPLETE:08/09/21 12:37 [id number] Reason(s): Pain Copy for: 710 MED REC DISCHARGED Page 2 of 2 Name Value Range Interpretation Code Description Data Maggie rce(s) Supporting Document(s) ID Date Data Source [id number] 08/09/2021 02:43:00 PM EDT [facility] [address] [place] [address] PHONE: [phone] FAX: [phone] Name .................. : NORM Mcadams Acct Number.................. : [id number] ROOM. ................. : VT-16 Number ................... : [id number] Stay type ............. : E/R Discharge Date......... ... : 08/09/21 Admit Date ......... : 08/09/21 Admit Phys .................... : CHINMAY VIC Date of ....... : 1995 Family Phys ................... : UNKNOWN CO Phone .................. : [phone] Age ................................ : 25 Film# .................. .:[id number] Sex ................................. : M Unsigned transcriptions are preliminary reports and do not represent a medical or legal document CT HEAD W/O CONTRAST 95160 COMPLETE:08/09/21 12:37 [id number] [place] son(s): Syncope CT BRAIN WITHOUT IV CONTRAST [...] By Anil Damon MD , 08/09/21 14:43, TAN Transcribe Initials: RUTH ANN, Transcribe Date: 08/09/21 14:21, Dictation Date: Page 1 of 2 [facility] [address] [place] [address] [place] [address] PHONE: [phone] FAX: [phone] Name .................. : NORM Mcadams Acct Number.................. : [id number] ROOM. ................. : IA-16 MR Number ................... : [id number] Stay type ............. : E/R Discharge Date......... ... : 08/09/21 Admit Date ......... : 08/09/21 Admit Phys .................... : CHINMAY HO Date of ....... : 1995 Family Phys ................... : UNKNOWN CO Phone .................. : [phone] Age ................................ : 25 Film# .................. .:[id number] Sex ................................. : M Unsigned transcriptions are preliminary reports and do not represent a medical or legal document CT HEAD W/O CONTRAST [id number] COMPLETE:08/09/21 12:37 [id number] Reason(s): Syncope Copy for: [employer] via fax Copy for: EMERGENCY DEPT via modem Copy for: 710 MED REC DISCHARGED Page 2 of 2 Name Value Range Interpretation Code Description Data Maggie rce(s) Supporting Document(s) ID Date Data Source [id number] 08/09/2021 02:03:00 PM EDT [facility] Name Value Range Interpretation Code Description Data Maggie rce(s) Supporting Document(s) URINALYSIS [facility] URINALYSIS SOURCE R [facility] COLOR yellow NORMAL: Yellow [facility] CLARITY clear NORMAL: Clear [facility] Specific gravity of Urine by Test strip 1.025 1.001 - 1.030 [facility] 6 5 - [facility] Glucose [Mass/volume] in Urine by Test strip NORM NORMAL: Negat [facility] Bilirubin.total [Presence] in Urine by Test strip NEG NORMAL: Negative [facility] Ketones [Presence] in Urine by Test strip 5 NORMAL: Negative A [facility] Protein [Mass/volume] in Urine by Test strip 15 NORMAL: Negat [facility] Nitrite [Presence] in Urine by Test strip NEG NORMAL: Negative [facility] BLOOD NEG NORMAL: Negative [facility] LEUK EST NEG NORMAL: Negative [facility] Urobilinogen [Mass/volume] in Urine by Test strip NOR less jose daniel n 1.0 mg/dL [facility] MICROSCOPIC See Below [facility] WBC 3 - 5 NORMAL: NONE SEEN [facility] Erythrocytes [#/volume] in Urine by Test strip 0 - 1 NORMAL: NON E SEEN [facility] EPITHELIAL FEW NORMAL: NONE SEEN [facility] Bacteria [Presence] in Urine sediment by Light microscopy Tr thien NORMAL: NONE SEEN [facility] Mucus [Presence] in Urine sediment by Light microscopy 1+ NOR MAL: NONE SEEN [facility] ID Date Data Source [id number] 08/09/2021 01:56:00 PM EDT [facility] Name Value Range Interpretation Code Description Data Maggie rce(s) Supporting Document(s) TROPONIN T <0.01 NG/ML 0.00 - 0.10 [facility] TROPONIN T0.1 ng/ml Recommended as the c linical threshold value forTroponin T. ID Date Data Source [id number] 08/09/2021 01:29:00 PM EDT [facility] Name Value Range Interpretation Code Description Data Maggie [facility](s) Supporting Document(s) Thyrotropin [Units/volume] in Serum or Plasma by Detec tion limit <= 0.05 mIU/L 0.70 uIU/mL 0.47 - 5.01 [facility] ID Date Data Source [id number] 08/09/2021 01:19:00 PM EDT [facility] Name Value Range Interpretation Code Description Data Maggie rce(s) Supporting Document(s) COMPREHENSIVE METABOLIC PANEL [facility] COMPREHENSIVE METABOLIC PANEL Sodium [Moles/volume] in Serum or Plasma 141 mEq/L 134 - 153 [facility] Potassium [Moles/volume] in Serum or Plasma 4.3 mEq/L 3.6 - 5.0 [facility] Chloride [Moles/volume] in Serum or Plasma 105 mEq/L 98 - 107 [facility] Carbon dioxide, total [Moles/volume] in Serum or Plasma 25 MEQ/L 22 - 30 [facility] Glucose [Mass/volume] in Serum or Plasma 100 MG/DL 70 - 99 H [facility] BUN 16 MG/DL 7 - 21 [facility] Creatinine [Mass/volume] in Serum or Plasma 0.9 MG/DL 0.7 - 1.5 [facility] BUN/CREAT 18 8 - 27 [facility] al Protein [Mass/volume] in Serum or Plasma 7.7 G/DL 6.3 - 8.2 [facility] Albumin [Mass/volume] in Serum or Plasma 5.3 G/DL 3.9 - 5.0 H [facility] Globulin [Mass/volume] in Serum by calculation 2.4 GM/DL 2.4 - 3.2 [facility] A/G RATIO 2.2 0.8 - 2.0 H [facility] Calcium [Mass/volume] in Serum or Plasma 10.1 MG/DL 8.4 - 10.2 [facility] Bilirubin.total [Mass/volume] in Serum or Plasma 1.5 MG/DL 0.2 - 1.3 H [facility] Alkaline phosphatase [Enzymatic activity/volume] in Serum or Plasma 76 U/L 38 - 126 [facility] Aspartate aminotransferase [Enzymatic activity/volume] in Serum or Plasma 21 U/L 5 - 40 [facility] Alanine aminotransferase [Enzymatic activity/volume] in Seru m or Plasma 17 U/L 7 - 56 [facility] Anion gap 3 in Serum or Plasma 11.0 mmol/L 8.0 - 16.0 [facility] AGE 25 yrs [facility] NON-AA GFR >60 mL/min [facility] AFR AMER GFR >60 mL/min [facility] Male GFR In terprentation 20-49 [...] >32 mL/min Normal ID Date Data Source [id number] 08/09/2021 01:18:00 PM EDT [facility] Name Value Range Interpretation Code Description Data Maggie rce(s) Supporting Document(s) Lipase [Enzymatic activity/volume] in Serum or Plasma 15 U/L 13 - 60 [facility] ID Date Data Source [id number] 08/09/2021 12:52:00 PM EDT [facility] Name Value Range Interpretation Code Description Data Maggie rce(s) Supporting Document(s) Lactate [Moles/volume] in Serum or Plasma 1.1 MMOL/L 0.2 - 2.2 [facility] ID Date Data Source [id number] 08/09/2021 12:51:00 PM EDT [facility] Name Value Range Interpretation Code Description Data Maggie rce(s) Supporting Document(s) CBC W/AUTOMATED DIFF [facility] COMPLETE BLOOD COUNT Leukocytes [#/volume] in Blood by Automated count 10.0 10^3/uL 4.2 - 11.0 [facility] Erythrocytes [#/volume] in Blood by Automated count 5.29 10^6/uL 4. 50 - 6.30 [facility] Hemoglobin [Mass/volume] in Blood 15.7 g/dL 14.0 - 16.0 [facility] Hematocrit [Volume Fraction] of Blood by Automated count 45.0 % 4 1.0 - 51.0 [facility] Erythrocyte mean corpuscular volume [Entitic volume] by Auto mated count 85.1 fL 80.0 - 94.0 [facility] Erythrocyte mean corpuscular hemoglobin [Entitic mass] by Automated count 29.7 pg 27.0 - 34.0 [facility] Erythrocyte mean corpuscular hemoglobin concentration [Mass/volume] by Automated count 34.9 g/dL 31.0 - 36.0 [facility] Erythrocyte distribution width [Ratio] by Automated count 13.0 % 11.5 - 14.8 [facility] Platelets [#/volume] in Blood by Automated count 258 10^3/uL 150 - 45 0 [facility] Platelet mean volume [Entitic volume] in Blood by Automated count 9.7 fL 7.4 - 10.4 [facility] Neutrophils/100 leukocytes in Blood by Automated count 77.5 % 37. 0 - 80.0 [facility] Lymphocytes/100 leukocytes in Blood by Manual count 15.3 % 25.0 - 40.0 L [facility] Monocytes/100 leukocytes in Blood by Automated count 5.1 % 3.0 - 8.0 [facility] Eosinophils/100 leukocytes in Blood by Automated count 1.1 % 0.0 - 7.0 [facility] Basophils/100 leukocytes in Blood by Automated count 0.7 % 0.0 - 2.0 [facility] %IG 0.3 % 0.0 - 0.0 H [facility] al %NRBC 0.0 % 0.0 - 0.0 [facility] al Neutrophils [#/volume] in Blood by Automated count 7.78 10^3/uL 2.00 - 6.90 H [facility] Lymphocytes [#/volume] in Blood by Automated count 1.53 10^3/uL 0.60 - 3.40 [facility] Monocytes [#/volume] in Blood by Automated count 0.51 10^3/uL 0.00 - 0.90 [facility] Eosinophils [#/volume] in Blood by Automated count 0.11 10^3/uL 0.00 - 0.70 [facility] Basophils [#/volume] in Blood by Automated count 0.07 10^3/uL 0.00 - 0.20 [facility] #IG 0.03 10^3/uL 0.00 - 0.10 [facility] #NRBC 0.00 10^3/uL 0.00 - 0.00 [facility] MANUAL DIFF NOT INDICATED [facility] RBC MORPH NOT INDICATED [facility] ID Date Data Source [id number] 10/05/2020 12:53:00 PM EST [facility] Name Value Range Interpretation Code Description Data Maggie rce(s) Supporting Document(s) SARS coronavirus 2 RNA [facility] This lab was ordered by [facility] and reported by [facility]. Procedure Social History No Information Vital Signs ID Date Data Source UNK Name Value Range Interpretation Code Description Data Source(s) Body mass index (BMI) [Ratio] 27.4 kg/m2 27.4 k g/m2 [facility] ([facility] ) Body temperature 97.0 [degF] 97.0 [degF] [facility] ([facility]) Body height 67 [in_i] 67 [in_i] [facility] ([facility]) 5'7" Body weight 175.00 [lb_av] 175.00 [lb_av] [facility] T ([facility]) Body height 66 [in_i] 66 [in_i] [facility] ([facility]) 5'6" Body weight 175.00 [lb_av] 175.00 [lb_av] [facility] T ([facility]) Body mass index (BMI) [Ratio] 28.2 kg/m2 28.2 k g/m2 [facility] ([facility]) Body temperature 97.2 [degF] 97.2 [degF] [facility] ([facility])
== END 2021-10-10 15:50 | disposition left against medical advice (07) ==
LOC: M ED 09:56
DX: Z53.21 Procedure and treatment not carried out due to patient leaving prior to being seen by health care provider (principal)